=== PATIENT | female | born 1940 | race Caucasian/White ===

== ENCOUNTER 2019-06-02 00:34 | Emergency (ER) | payer MEDICARE, BC ==
--- NOTE | 2019-06-02 01:51 | EDM.PDOC ---
ED HPI GENERAL MEDICAL PROBLEM - General Chief Complaint: Genitourinary Problem Stated Complaint: BLADDER CANCER SURGERY TODAY IN PAIN Time Seen by Provider: 06/02/19 00:35 Source of Information: Reports: Patient, Family History Limitations: Reports: No Limitations - History of Present Illness INITIAL COMMENTS - FREE TEXT/NARRATIVE: TRIAGE NOTE -- Pt has hx of bladder cancer, had surgery this am in [place]. Since then, she has not been able to urinate at all. Has burning feeling when attempting to urinate. Complaining of pain to bladder and lower abdomen. Type 1 diabetes and states BG has been elevated, has an insulin pump. [ End ] As above. Patient had a BCG treatment earlier today. This was in [place]. She returned to [place] where she lives and she and family noted bladder distention and she came to the ER. Patient has a history of noninvasive bladder cancer and other significant issues include diabetes, renal insufficiency, history of occluded or obstructed left ureter, and hypertension. No fever or other symptom of acute medical illness has been noted prior to arrival. There has been no treatment or other attempt to relieve symptoms prior to coming to the emergency department. Patient was brought as soon as the problem was detected by family and patient. Lower Abdomen Pain Score (Numeric/FACES): 8 - Related Data Allergies Allergy/AdvReac Type Severity Reaction Status Date / Time Sulfa (Sulfonamide Allergy Rash Verified 06/02/19 00:57 Antibiotics) Home Meds: Home Meds Aspirin 81 mg PO DAILY 01/15/19 [History] Calcium Carbonate [Calcium] 600 mg PO DAILY 01/15/19 [History] Cholecalciferol (Vitamin D3) [Vitamin D3] 2,000 mg PO DAILY 01/15/19 [History] Levothyroxine 112 mcg PO DAILY 01/15/19 [History] Metoprolol Tartrate 25 mg PO BID 01/15/19 [History] Multivitamin [Multivitamins] 1 tab PO DAILY 01/15/19 [History] Simvastatin [Zocor] 40 mg PO DAILY 01/15/19 [History] Vitamin B Complex 1 tab PO DAILY 01/15/19 [History] amLODIPine Besylate/Benazepril [Amlodipine-Benazepril 10-20 MG] 1 tab PO DAILY 01/15/19 [History] hydroCHLOROthiazide [Hydrochlorothiazide] 12.5 mg PO DAILY 01/15/19 [History] Ciprofloxacin HCl [Cipro] 250 mg PO BID #14 tablet 04/18/19 [Rx] Novolog Insulin Pump. 04/18/19 [History] Ciprofloxacin [Ciprofloxacin HCl] 500 mg PO Q18H 5 Days #5 tab 06/02/19 [Rx] Past Medical History HEENT History: Reports: Impaired Vision Cardiovascular History: Reports: Hypertension Genitourinary History: Reports: UTI, Recurrent Other Genitourinary History: bladder cancer Endocrine/Metabolic History: Reports: Diabetes, Type I - Past Surgical History Female Surgical History: Reports: Cystoscopy, Other (See Below) Other Female Surgeries/Procedures: surgery for bladder cancer, biopsy Social & Family History - Family History Family Medical History: Noncontributory - Tobacco Use Smoking Status *Q: Never Smoker Second Hand Smoke Exposure: No - Caffeine Use Caffeine Use: Reports: None - Recreational Drug Use Recreational Drug Use: No ED ROS GENERAL - Review of Systems Review Of Systems: Comprehensive ROS is negative, except as noted in HPI. ED EXAM, RENAL/ - Physical Exam Exam: See Below Exam Limited By: No Limitations General Appearance: Alert, No Apparent Distress, Other (wan) Eye Exam: Bilateral Eye: EOMI Ears: Normal External Exam Nose: Normal Inspection Throat/Mouth: Normal Inspection Head: Atraumatic Neck: Normal Inspection, Supple Respiratory/Chest: No Respiratory Distress, Normal Breath Sounds Cardiovascular: Regular Rate, Rhythm GI/Abdominal: Soft, Non-Tender, Other (Fullness and dullness in the lower abdomen consistent with bladder distention) Back Exam: Normal Inspection Extremities: Normal Inspection Neurological: Alert, Oriented Psychiatric: Normal Affect, Normal Mood Skin Exam: Warm, Dry Course - Vital Signs Last Recorded V/S: Last Vital Signs Temp 37.5 C 06/02/19 00:52 Pulse 104 H 06/02/19 00:52 Resp 16 06/02/19 00:52 BP 181/63 H 06/02/19 00:52 Pulse Ox 97 06/02/19 00:52 - Orders/Labs/Meds Orders: Active Orders 24 hr Category Date Time Status Urinary Catheter Assessment [RC] ASDIRECTED Care 06/02/19 01:19 Active Urinary Catheter Insertion [Insert Urinary Catheter] [ Care 06/02/19 01:20 Ordered OM.PC] Q24H CULTURE URINE [RM] Stat Lab 06/02/19 01:15 Received Labs: Laboratory Tests 06/02/19 06/02/19 06/02/19 Range/Units 01:15 01:28 01:28 WBC 17.00 H (3.98-10.04) K/mm3 RBC 3.71 L (3.98-5.22) M/mm3 Hgb 10.5 L (11.2-15.7) gm/dl Hct 30.5 L (34.1-44.9) % MCV 82.2 (79.4-94.8) fl MCH 28.3 (25.6-32.2) pg MCHC 34.4 (32.2-35.5) g/dl RDW Std Deviation 38.1 (36.4-46.3) fL Plt Count 294 (182-369) K/mm3 MPV 9.1 L (9.4-12.3) fl Neut % (Auto) 90.5 H (34.0-71.1) % Lymph % (Auto) 3.2 L (19.3-51.7) % [place] % (Auto) 6.0 (4.7-12.5) % Eos % (Auto) 0 L (0.7-5.8) Baso % (Auto) 0.1 (0.1-1.2) % Neut # (Auto) 15.39 H (1.56-6.13) K/mm3 Lymph # (Auto) 0.54 L (1.18-3.74) K/mm3 [place] # (Auto) 1.02 H (0.24-0.36) K/mm3 Eos # (Auto) 0.00 L (0.04-0.36) K/mm3 Baso # (Auto) 0.01 (0.01-0.08) K/mm3 Manual Slide Review Abnormal smear Sodium 119 L (136-145) mEq/L Potassium 4.8 (3.5-5.1) mEq/L Chloride 85 L (98-107) mEq/L Carbon Dioxide 18 L (21-32) mEq/L Anion Gap 20.8 H (5-15) BUN 46 H (7-18) mg/dL Creatinine 2.1 H (0.55-1.02) mg/dL Est Cr Clr Drug Dosing 20.19 mL/min Estimated GFR (MDRD) 23 (>60) mL/min BUN/Creatinine Ratio 21.9 H (14-18) Glucose 276 H (83-115) mg/dL POC Glucose (83-110) mg/dL Calcium 8.2 L (8.5-10.1) mg/dL Total Bilirubin 0.5 (0.2-1.0) mg/dL AST 21 (15-37) U/L ALT 21 (14-59) U/L Alkaline Phosphatase 70 (46-116) U/L Total Protein 7.0 (6.4-8.2) g/dl Albumin 3.3 L (3.4-5.0) g/dl Globulin 3.7 gm/dL Albumin/Globulin Ratio 0.9 L (1-2) Urine Color Red H (Yellow) Urine Appearance Turbid H (Clear) Urine pH 6.0 (5.0-8.0) Ur Specific [place] 1.025 (1.005-1.030) Urine Protein 3+ H (Negative) Urine Glucose (UA) Trace H (Negative) Urine Ketones Negative (Negative) Urine Occult Blood 3+ H (Negative) Urine Nitrite Negative (Negative) Urine Bilirubin Negative (Negative) Urine Urobilinogen 0.2 (0.2-1.0) Ur Leukocyte Esterase 1+ H (Negative) Urine RBC Too numerous to cnt H (0-5) /hpf Urine WBC 5-10 H (0-5) /hpf Urine WBC Clumps Rare (NOT SEEN) /hpf Ur Epithelial Cells Not seen (0-5) /hpf Urine Bacteria Few (FEW) /hpf Urine Mucus Rare (FEW) /hpf 06/02/19 Range/Units 01:43 WBC (3.98-10.04) K/mm3 RBC (3.98-5.22) M/mm3 Hgb (11.2-15.7) gm/dl Hct (34.1-44.9) % MCV (79.4-94.8) fl MCH (25.6-32.2) pg MCHC (32.2-35.5) g/dl RDW Std Deviation (36.4-46.3) fL Plt Count (182-369) K/mm3 MPV (9.4-12.3) fl Neut % (Auto) (34.0-71.1) % Lymph % (Auto) (19.3-51.7) % [place] % (Auto) (4.7-12.5) % Eos % (Auto) (0.7-5.8) Baso % (Auto) (0.1-1.2) % Neut # (Auto) (1.56-6.13) K/mm3 Lymph # (Auto) (1.18-3.74) K/mm3 [place] # (Auto) (0.24-0.36) K/mm3 Eos # (Auto) (0.04-0.36) K/mm3 Baso # (Auto) (0.01-0.08) K/mm3 Manual Slide Review Sodium (136-145) mEq/L Potassium (3.5-5.1) mEq/L Chloride (98-107) mEq/L Carbon Dioxide (21-32) mEq/L Anion Gap (5-15) BUN (7-18) mg/dL Creatinine (0.55-1.02) mg/dL Est Cr Clr Drug Dosing mL/min Estimated GFR (MDRD) (>60) mL/min BUN/Creatinine Ratio (14-18) Glucose (83-115) mg/dL POC Glucose 281 H (83-110) mg/dL Calcium (8.5-10.1) mg/dL Total Bilirubin (0.2-1.0) mg/dL AST (15-37) U/L ALT (14-59) U/L Alkaline Phosphatase (46-116) U/L Total Protein (6.4-8.2) g/dl Albumin (3.4-5.0) g/dl Globulin gm/dL Albumin/Globulin Ratio (1-2) Urine Color (Yellow) Urine Appearance (Clear) Urine pH (5.0-8.0) Ur Specific [place] (1.005-1.030) Urine Protein (Negative) Urine Glucose (UA) (Negative) Urine Ketones (Negative) Urine Occult Blood (Negative) Urine Nitrite (Negative) Urine Bilirubin (Negative) Urine Urobilinogen (0.2-1.0) Ur Leukocyte Esterase (Negative) Urine RBC (0-5) /hpf Urine WBC (0-5) /hpf Urine WBC Clumps (NOT SEEN) /hpf Ur Epithelial Cells (0-5) /hpf Urine Bacteria (FEW) /hpf Urine Mucus (FEW) /hpf - Re-Assessments/Exams Free Text/Narrative Re-Assessment/Exam: 06/02/19 02:51 A Malone catheter was placed without difficulty and almost a liter of blood- tinged urine was released. Discussed with the patient's urologist who had done the procedure earlier Dr. Raphael Jang. We discussed the 17,000 white count which is most likely related to the procedure. The urine is positive for blood as expected without any evidence of infection. Renal function apparently is about baseline for the patient. Urology recommends putting the patient on prophylactic Cipro and we have prescribed this in dosage appropriate for her renal insufficiency. He also asked that we flush the catheter to clear out blood so that it would be less likely to clot and cause another outlet obstruction. This was done uneventfully. Departure - Departure Time of Disposition: 02:45 Disposition: Home, Self-Care 01 Condition: Good Clinical Impression: Bladder outlet obstruction, Status post urological surgery - Discharge Information Prescriptions: Ciprofloxacin [Ciprofloxacin HCl] 500 mg PO Q18H 5 Days #5 tab Referrals: Raphael Montes MD [Primary Care Provider] - Forms: ED Department Discharge Additional Instructions: You were seen tonight for a urinary outlet obstruction probably as result of blood clots from your earlier procedure. A Malone catheter has been placed. Discussed with your urologist. He recommends flushing the catheter to minimize the formation of clots to cause another urinary obstruction. He also recommended a 5-day course of Cipro and antibiotic. This is been ordered. Return to ER right away for any further evidence of obstruction, fever, nausea vomiting, any symptom of acute illness whatsoever. Get in touch with your urologist this morning for any further instructions Sepsis Event Note - Evaluation Sepsis Screening Result: No Definite Risk - Focused Exam Vital Signs: Vital Signs Temp Pulse Resp BP Pulse Ox 06/02/19 00:52 37.5 C 104 H 16 181/63 H 97 Date Exam was Performed: 06/02/19 Time Exam was Performed: 02:45 - My Orders Last 24 Hours: My Active Orders 06/02/19 01:15 CULTURE URINE [RM] Stat - Assessment/Plan Last 24 Hours: My Active Orders 06/02/19 01:15 CULTURE URINE [RM] Stat
== END 2019-06-02 03:20 | disposition home or self-care (01) ==
LOC: JD.ED 00:34
DX: N32.0 Bladder-neck obstruction (principal); I10 Essential (primary) hypertension; E10.9 Type 1 diabetes mellitus without complications; Z79.82 Long term (current) use of aspirin; Z88.2 Allergy status to sulfonamides; Z79.899 Other long term (current) drug therapy
CPT/HCPCS: 36415; 51702; 80053; 81001; 82962; 85025; 87086; 99284

== ENCOUNTER 2019-06-02 10:06 | Inpatient (IN) | payer MEDICARE, BC ==
--- NOTE | 2019-06-02 10:26 | EDM.PDOC ---
ED HPI GENERAL MEDICAL PROBLEM - General Chief Complaint: Genitourinary Problem Stated Complaint: VOMITING/CATHETER ISSUES Time Seen by Provider: 06/02/19 10:26 Source of Information: Reports: Patient History Limitations: Reports: No Limitations - History of Present Illness INITIAL COMMENTS - FREE TEXT/NARRATIVE: [id number] female returns to the ED after being seen earlier this morning at [address] Martinez. The history suggests a lady with known bladder cancer with recurrences and requiring cauterization and fulguration by urology services in [place] yesterday. She is being set up for intravesical BCG treatments. First diagnosed with this disorder greater than 6 months ago in [facility] and was advised follow-up for BCG treatments which whatever reason never got done. On follow-up in 6 months later she still had recurrence of cancer and fulguration and cauterization was once again done by urology services in [place]. She recently was seen in [place] and fulguration cauterization was repeated. Patient came into the ED early this morning because of inability to void. It was felt that she likely had clots in her bladder causing occlusion. A Malone catheter was therefore placed. The family has noted occasional blood clots in the drainage tube and the collection bag. Apparently the patient did receive a dose of antibiotic preoperatively. When she presented to the ED this morning she did have a temperature of 37.5. Pulse is 104 at the bedside and BP was elevated slightly at 181/63 with respect rate is 16 and sats 97%. Her white count was elevated at 17,000 with 19.5% neutrophils suggestive of an infective process. Hemoglobin was 10.5 with a hematocrit of 30.5 and platelet count of 294,000. She is an insulin-dependent diabetic controlled with an insulin pump. Her sugar was elevated at 276 this morning chemistry revealed a sodium of 119 this morning. Potassium of 4.8 with a chloride of 85 and a bicarbonate of 18. Anion gap was elevated at 20.8. BUN is 46 with a creatinine of 2.1 and a GFR of 23 confirming stage IV chronic kidney disease. Urinalysis done this morning was red turbid with 3+ protein negative ketones trace of glucose 3+ occult blood on the dip and 1+ leukocyte esterase. 2 numerous to count red cells and 5-10 white blood cells appreciated. He did consult with urology services and recommended placing the patient on prophylactic Cipro and she was given 500 mg once daily. She has not yet been able to fill this prescription or take it. Reasoner return to the ED this morning is recurrent nausea and vomiting since discharge from the hospital. Even water came back up just shortly before coming into the ED. is bilious. On examination patient does feel warm to palpation. She does report her temperature is 37.0 but she feels warmer than this. Onset: Today Onset Date: 06/02/19 (Presented to the ED at 00 35 hours this morning in urinary retention. Seem to occur from a blood obstruction from blood clots after having fulguration and cauterization of bladder tumor yesterday in [place] by neurology services.) Onset Time: 00:35 (200 and vomiting this morning and is vomited 4 times in total unable to keep down any of her medications.) Duration: Hour(s): Location: Reports: Abdomen (recurrent nausea and vomiting.) Quality: Reports: Other (Generally does not feel well.) Severity: Moderate (Perhaps very mild chills.) Improves with: Reports: None Worsens with: Reports: Other (Able to eat or drink. He comes right back up) Context: Reports: Other (Recent fulguration and cauterization of bladder tumor in [place] yesterday. It is believed that she did receive prophylactic IV antibiotic during the surgery or before surgery. Zets with intractable nausea and vomiting this morning.). Denies: Activity, Exercise, Lifting, Sick Contact , Trauma Associated Symptoms: Reports: Cough, Fever/Chills, Loss of Appetite (States she does have a mild cough), Malaise, Nausea/Vomiting, Weakness. Denies: Confusion , Chest Pain, cough w sputum, Diaphoresis, Headaches, Rash, Seizure (Intractable ), Shortness of Breath, Syncope Treatments [employer]: Reports: Other (see below) (Nothing will stay down) - Related Data Allergies Allergy/AdvReac Type Severity Reaction Status Date / Time Sulfa (Sulfonamide Allergy Rash Verified 06/02/19 10:37 Antibiotics) Home Meds: Home Meds Aspirin 81 mg PO DAILY 01/15/19 [History] Calcium Carbonate [Calcium] 600 mg PO DAILY 01/15/19 [History] Cholecalciferol (Vitamin D3) [Vitamin D3] 2,000 mg PO DAILY 01/15/19 [History] Levothyroxine 112 mcg PO DAILY 01/15/19 [History] Metoprolol Tartrate 25 mg PO BID 01/15/19 [History] Multivitamin [Multivitamins] 1 tab PO DAILY 01/15/19 [History] Simvastatin [Zocor] 40 mg PO DAILY 01/15/19 [History] Vitamin B Complex 1 tab PO DAILY 01/15/19 [History] amLODIPine Besylate/Benazepril [Amlodipine-Benazepril 10-20 MG] 1 tab PO DAILY 01/15/19 [History] hydroCHLOROthiazide [Hydrochlorothiazide] 25 mg PO DAILY 01/15/19 [History] Novolog Insulin Pump. 04/18/19 [History] Ciprofloxacin [Ciprofloxacin HCl] 500 mg PO DAILY 06/02/19 [History] Ferrous Sulfate [Iron] 325 mg PO DAILY 06/02/19 [History] Past Medical History HEENT History: Reports: Impaired Vision Cardiovascular History: Reports: Hypertension Genitourinary History: Reports: Chronic Renal Insuffiency (Stage IV.), Diabetic Nephropathy, UTI, Recurrent Other Genitourinary History: bladder cancer--initial diagnosis was made greater than 8 months ago in [facility]. Patient was supposed of BCG treatments after this but never did for whatever reason. She was just seen again in [place] and repeat fulguration and cauterization of bladder tumor was repeated. She came back to [place] and treatment. She was seen by urology services in [place] who underwent a repeat cystoscopy yesterday with fulguration cauterization of bladder tumor and scrapings. She is to start intravesical BCG treatments in the near future Endocrine/Metabolic History: Reports: Diabetes, Type II (Controlled with insulin pump) Other Endocrine/Metabolic History: Blood sugars have been running high the last 2 days - Past Surgical History Female Surgical History: Reports: Cystoscopy, Other (See Below) Other Female Surgeries/Procedures: surgery for bladder cancer, biopsy Social & Family History - Family History Family Medical History: Noncontributory - Caffeine Use Caffeine Use: Reports: None - Living Situation & Occupation Living situation: Reports: , Alone Occupation: Retired ED ROS GENERAL - Review of Systems Review Of Systems: See Below Constitutional: Reports: Fever, Chills, Malaise, Weakness, Fatigue, Decreased Appetite HEENT: Reports: Glasses Respiratory: Reports: No Symptoms Cardiovascular: Reports: Blood Pressure Problem, Dyspnea on Exertion (Mild in her lower extremities at times), Edema, Lightheadedness. Denies: Chest Pain, Claudication, Orthopnea Endocrine: Reports: Fatigue GI/Abdominal: Reports: Nausea, Vomiting (Constant nausea and vomiting for the last 8-10 hours.) : Reports: Frequency ( They will stay down.), Other (Went into urinary retention after having fulguration and cauterization of bladder tumor yesterday in [place]. Presented to the ED at 00 35 hours this morning in urinary retention requiring Malone catheter placement. The catheter drainage system is showing evidence of bright red blood and a few clots. It is suspect that clotting occluded her urethra precipitating urinary retention. She is known to have bladder cancer for the last 8-10 months to receive intravesical BCG treatments which were recommended initially at the time of diagnosis) Musculoskeletal: Reports: Back Pain, Joint Pain (Knees hips shoulders and neck at times) Skin: Reports: No Symptoms Neurological: Reports: No Symptoms Psychiatric: Reports: No Symptoms Immunologic: Reports: No Symptoms ED EXAM, RENAL/ - Physical Exam Exam: See Below Exam Limited By: No Limitations General Appearance: Alert, WD/WN, Mild Distress, Other (Vital signs were temperature 37.0 but she feels warmer than this on palpation. Pulse is 92 and sinus the bedside was pressure to 13 with O2 sats of 100% on room air. BP minimally elevated 159/53.) Eye Exam: Right Eye: Normal Inspection (No scleral icterus.) Throat/Mouth: Normal Inspection, Normal Oropharynx, Other (Tongue is dry and coated) Head: Atraumatic, Normocephalic Neck: Normal Inspection, Supple, Non-Tender, Full Range of Motion, Other (No JVD.). No: Carotid Bruit, Lymphadenopathy (L), Lymphadenopathy (R) Respiratory/Chest: No Respiratory Distress, Lungs Clear, Normal Breath Sounds, No Accessory Muscle Use Cardiovascular: Normal Peripheral Pulses, Regular Rate, Rhythm, No Edema, No Gallop, No Murmur, No Rub GI/Abdominal: Normal Bowel Sounds, Soft, Non-Tender, No Organomegaly, No Mass, Pelvis Stable, Rebound (Female) Exam: Other (Malone catheter in place in the urethra. No she's been leaking around the urethral site of the catheter. The catheter drainage bag and catheter tubing contained bright red blood with a few clots.) Back Exam: Normal Inspection, Full Range of Motion, CVA Tenderness (L). No: CVA Tenderness (R) Extremities: Normal Inspection (Mild), Normal Range of Motion, Non-Tender, Pedal Edema Neurological: Alert, Oriented (Mild.), CN II-XII Intact, Normal Cognition Psychiatric: Normal Affect, Other Skin Exam: Warm, Dry, Intact, Normal Color, No Rash EKG INTERPRETATION EKG Date: 06/02/19 Time: 10:43 Rhythm: NSR Rate (Beats/Min): 86 [place]: Normal P-Wave: Present (First-degree AV block) QRS: Other (Severe left atrial hypertrophy early R-wave transition consider right ventricular hypertrophy versus septal hypertrophy pattern.) ST-T: Normal (Minimally prolonged) QT: Prolonged EKG Interpretation Comments: Abnormal ECG Chemistry reveals a sodium of 114. I believe was 119 when checked earlier this morning. Potassium is 4.2 with a chloride low at 82. Bicarbonate is 20 with an anion gap of 16.2. BUN is 44 the creatinine of 1.9. GFR is down to 20 6H stage IV chronic kidney disease. Glucose is 231. Calcium is 8.3 magnesium is 1.6. Slightly low liver function is normal troponin I is less than 0.017. C-reactive protein is elevated at 6.8. BNP is 2220. Total protein is 6.8 with an albumin fraction low at 3.1. Course - Vital Signs Last Recorded V/S: Last Vital Signs Temp 37.9 C 06/02/19 12:06 Pulse 85 06/02/19 12:06 Resp 13 06/02/19 10:26 BP 159/61 H 06/02/19 12:06 Pulse Ox 99 06/02/19 12:06 - Orders/Labs/Meds Orders: Active Orders 24 hr Category Date Time Status EKG Documentation Completion [RC] STAT Care 06/02/19 10:39 Active Chest 1V Frontal [CR] Stat Exams 06/02/19 10:39 Taken CULTURE BLOOD [BC] Stat Lab 06/02/19 11:48 Received CULTURE BLOOD [BC] Stat Lab 06/02/19 12:04 Received CULTURE URINE [RM] Stat Lab 06/02/19 01:15 Received OSMOLALITY,SERUM [CHEM] Stat Lab 06/02/19 12:10 Ordered SODIUM,URINE RANDOM [URCHEM] Stat Lab 06/02/19 12:23 Ordered Magnesium Sulfate/Water [Magnesium Sulfate in Water Med 06/02/19 12:04 Active Premix] 2 gm Premix Bag 1 bag IV ONETIME Sodium Chloride 0.9% [Normal Saline] 1,000 ml Med 06/02/19 10:45 Active IV ASDIRECTED Blood Culture x2 Reflex Set [OM.PC] Stat Oth 06/02/19 10:39 Ordered Medication Orders Sodium Chloride (Normal Saline) 1,000 mls @ 250 mls/hr IV ASDIRECTED NICOL Last Admin: 06/02/19 10:58 Dose: 250 mls/hr Magnesium Sulfate 2 gm/ Premix 50 mls @ 25 mls/hr IV ONETIME ONE Stop: 06/02/19 14:03 Labs: Laboratory Tests 06/02/19 06/02/19 06/02/19 Range/Units 10:30 10:30 10:30 WBC 12.76 H (3.98-10.04) K/mm3 RBC 3.52 L (3.98-5.22) M/mm3 Hgb 10.0 L (11.2-15.7) gm/dl Hct 28.9 L (34.1-44.9) % MCV 82.1 (79.4-94.8) fl MCH 28.4 (25.6-32.2) pg MCHC 34.6 (32.2-35.5) g/dl RDW Std Deviation 37.4 (36.4-46.3) fL Plt Count 276 (182-369) K/mm3 MPV 9.2 L (9.4-12.3) fl Neutrophils % (Manual) 81 H (40-60) % Band Neutrophils % 0 (0-10) % Lymphocytes % (Manual) 9 L (20-40) % Atypical Lymphs % 0 % Monocytes % (Manual) 9 (2-10) % Eosinophils % (Manual) 1 (0.7-5.8) % Basophils % (Manual) 0 L (0.1-1.2) Platelet Estimate Adequate RBC Morph Comment Normal ESR (0-20) mm/hr PT 11.4 (9.7-12.0) SECONDS INR 1.05 APTT 28 (22-31) SECONDS Sodium 114 L* (136-145) mEq/L Potassium 4.2 (3.5-5.1) mEq/L Chloride 82 L (98-107) mEq/L Carbon Dioxide 20 L (21-32) mEq/L Anion Gap 16.2 H (5-15) BUN 44 H (7-18) mg/dL Creatinine 1.9 H (0.55-1.02) mg/dL Est Cr Clr Drug Dosing 20.51 mL/min Estimated GFR (MDRD) 26 (>60) mL/min BUN/Creatinine Ratio 23.2 H (14-18) Glucose 231 H (83-115) mg/dL Lactic Acid (0.4-2.0) mmol/L Calcium 8.3 L (8.5-10.1) mg/dL Magnesium 1.6 L (1.8-2.4) mg/dl Total Bilirubin 0.6 (0.2-1.0) mg/dL AST 23 (15-37) U/L ALT 21 (14-59) U/L Alkaline Phosphatase 66 (46-116) U/L Troponin I < 0.017 (0.00-0.056) ng/mL C-Reactive Protein 6.8 H* (<1.0) mg/dL NT-Pro-B Natriuret Pep (0-450) pg/mL Total Protein 6.8 (6.4-8.2) g/dl Albumin 3.1 L (3.4-5.0) g/dl Globulin 3.7 gm/dL Albumin/Globulin Ratio 0.8 L (1-2) Ketones (0.0-0.3) mM 06/02/19 06/02/19 06/02/19 Range/Units 10:30 10:30 10:30 WBC (3.98-10.04) K/mm3 RBC (3.98-5.22) M/mm3 Hgb (11.2-15.7) gm/dl Hct (34.1-44.9) % MCV (79.4-94.8) fl MCH (25.6-32.2) pg MCHC (32.2-35.5) g/dl RDW Std Deviation (36.4-46.3) fL Plt Count (182-369) K/mm3 MPV (9.4-12.3) fl Neutrophils % (Manual) (40-60) % Band Neutrophils % (0-10) % Lymphocytes % (Manual) (20-40) % Atypical Lymphs % % Monocytes % (Manual) (2-10) % Eosinophils % (Manual) (0.7-5.8) % Basophils % (Manual) (0.1-1.2) Platelet Estimate RBC Morph Comment ESR 52 H (0-20) mm/hr PT (9.7-12.0) SECONDS INR APTT (22-31) SECONDS Sodium (136-145) mEq/L Potassium (3.5-5.1) mEq/L Chloride (98-107) mEq/L Carbon Dioxide (21-32) mEq/L Anion Gap (5-15) BUN (7-18) mg/dL Creatinine (0.55-1.02) mg/dL Est Cr Clr Drug Dosing mL/min Estimated GFR (MDRD) (>60) mL/min BUN/Creatinine Ratio (14-18) Glucose (83-115) mg/dL Lactic Acid (0.4-2.0) mmol/L Calcium (8.5-10.1) mg/dL Magnesium (1.8-2.4) mg/dl Total Bilirubin (0.2-1.0) mg/dL AST (15-37) U/L ALT (14-59) U/L Alkaline Phosphatase (46-116) U/L Troponin I (0.00-0.056) ng/mL C-Reactive Protein (<1.0) mg/dL NT-Pro-B Natriuret Pep 2220 H (0-450) pg/mL Total Protein (6.4-8.2) g/dl Albumin (3.4-5.0) g/dl Globulin gm/dL Albumin/Globulin Ratio (1-2) Ketones 0.20 (0.0-0.3) mM 06/02/19 Range/Units 11:48 WBC (3.98-10.04) K/mm3 RBC (3.98-5.22) M/mm3 Hgb (11.2-15.7) gm/dl Hct (34.1-44.9) % MCV (79.4-94.8) fl MCH (25.6-32.2) pg MCHC (32.2-35.5) g/dl RDW Std Deviation (36.4-46.3) fL Plt Count (182-369) K/mm3 MPV (9.4-12.3) fl Neutrophils % (Manual) (40-60) % Band Neutrophils % (0-10) % Lymphocytes % (Manual) (20-40) % Atypical Lymphs % % Monocytes % (Manual) (2-10) % Eosinophils % (Manual) (0.7-5.8) % Basophils % (Manual) (0.1-1.2) Platelet Estimate RBC Morph Comment ESR (0-20) mm/hr PT (9.7-12.0) SECONDS INR APTT (22-31) SECONDS Sodium (136-145) mEq/L Potassium (3.5-5.1) mEq/L Chloride (98-107) mEq/L Carbon Dioxide (21-32) mEq/L Anion Gap (5-15) BUN (7-18) mg/dL Creatinine (0.55-1.02) mg/dL Est Cr Clr Drug Dosing mL/min Estimated GFR (MDRD) (>60) mL/min BUN/Creatinine Ratio (14-18) Glucose (83-115) mg/dL Lactic Acid 0.7 (0.4-2.0) mmol/L Calcium (8.5-10.1) mg/dL Magnesium (1.8-2.4) mg/dl Total Bilirubin (0.2-1.0) mg/dL AST (15-37) U/L ALT (14-59) U/L Alkaline Phosphatase (46-116) U/L Troponin I (0.00-0.056) ng/mL C-Reactive Protein (<1.0) mg/dL NT-Pro-B Natriuret Pep (0-450) pg/mL Total Protein (6.4-8.2) g/dl Albumin (3.4-5.0) g/dl Globulin gm/dL Albumin/Globulin Ratio (1-2) Ketones (0.0-0.3) mM Meds: Medications Generic Name Dose Route Start Last Admin Trade Name Freq PRN Reason Stop Dose Admin Sodium Chloride 1,000 mls @ 250 mls/hr 06/02/19 10:45 06/02/19 10:58 Normal Saline IV 250 mls/hr ASDIRECTED NICOL Administration Magnesium Sulfate 2 gm/ Premix 50 mls @ 25 mls/hr 06/02/19 12:04 IV 06/02/19 14:03 ONETIME ONE Discontinued Medications Generic Name Dose Route Start Last Admin Trade Name Erick PRN Reason Stop Dose Admin Acetaminophen 650 mg 06/02/19 11:00 06/02/19 10:58 Tylenol PO 06/02/19 11:01 650 mg ONETIME ONE Administration Ceftriaxone Sodium 1 gm/ 100 mls @ 200 mls/hr 06/02/19 11:19 06/02/19 11:52 Sodium Chloride IV 06/02/19 11:48 200 mls/hr ONETIME ONE Administration Ondansetron HCl 4 mg 06/02/19 10:38 06/02/19 10:58 Zofran IVPUSH 06/02/19 10:39 4 mg ONETIME ONE Administration - Radiology Interpretation Free Text/Narrative:: 78-year-old female presents to the ED for the second time in the same day. She was here earlier this morning at 00 35 hours as she presented with acute urinary retention after having fulguration and cauterization of bladder tumor in [place] by urology services yesterday. Was felt that her urethra was likely occluded from clot. A Malone catheter was placed and is been draining bloody urine since. He presents to the ED now because of recurrent nausea and vomiting since going home. She's vomited 4. A weak and exhausted. She is supposed to be taking Cipro 500 mg once daily but they have yet to fill the prescription for this medication. He has significant renal insufficiency i.e. stage IV due to diabetic nephropathy. Her sugars are controlled with an insulin pump. Labs done early this morning revealed a very low sodium at 119 elevated white count at 17, 000 with a left shift with a temperature 37.5. He returns today due to intractable nausea and vomiting since going home. She feels febrile to me but the temperature recorded is 37.0 by nursing staff. Plan she'll have a septic workup carried out. - Re-Assessments/Exams Free Text/Narrative Re-Assessment/Exam: 06/02/19 11:08 White count is 12.76 with 81% neutrophils and no band cells reported. Hemoglobin is low at 10.0 with hematocrit of 28.9. Platelet count 276, 000. PT is 11.4 with an INR 1.05 i.e. minimally elevated. PTT is normal at 28. Chest x-ray done portably is reveals a normal cardiac silhouette. It suggests a diffuse vascular congestion pattern to the upper lobes. No pneumonia 06/02/19 11:47Labs reveal a white count of 12.76 with 81% neutrophils and no band cells reported. Hemoglobin is dropped little at 10.0 and was 10.5 earlier this morning. Hematocrit is 28.9 platelet count 276,000. PT is 11.4 with an INR slightly elevated at 1.05. PTT is 28. Sodium is very low at 114 with potassium of 4.2. Chloride is 82 with a bicarbonate of 20. Anion gap is 16.2. BUN is 44 with creatinine of 1.9. Estimated GFR is only 26 i.e. stage IV chronic kidney disease. BUN/creatinine ratio is elevated at 23.2. Glucose is 231 with a calcium of 8.3. Magnesium slightly low at 1.6. Vision is normal. Troponin I is less than 0.017. C-reactive protein is elevated at 6.8. BNP is elevated at 2220. Total protein is 6.8 with an albumin fraction of 3.1. Patient will be given Rocephin 1 g IV for suspect urinary tract infection. Urine culture will be ordered on today's urinalysis as one was not done earlier this morning. 06/02/19 12:02 will be discussed with on-call hospitalist Dr. Harrell with a view to admission to the hospital to correct her hyponatremia slowly as she is also mild heart failure. She has stage IV renal insufficiency due to diabetic nephropathy. Appears to have urinary tract infection with a low-grade fever. Ultracet been collected. Given Rocephin 1 g IV in the ED. Of note she is due to have her diabetic tubing and dermal insertion site pad replaced on July 05. This last 10 days. Insulin was replaced in her pump yesterday. Her lactic acid level is pending. Serum ketones came back at 0.20. Will hang magnesium 2 g IV to correct her or mild hypomagnesemia at 1.6. 06/02/19 12:43 16 back at 0.7.tic acid returned at 0.7. Urine osmolality is pending. Will give the patient Lasix 40 mg IV. 06/02/19 12:[address] Harrell [employer] operations specialist hospitalist and he requested the patient be admitted to the intensive care unit. Orders were placed. Departure - Departure Time of Disposition: 12:49 Disposition: Admitted As Inpatient 67 Condition: Fair Clinical Impression: Acute urinary retention, Gross hematuria, Chronic renal insufficiency, stage IV (severe), CHF (NYHA class III, ACC/AHA stage C), Hyponatremia with decreased serum osmolality, Hypomagnesemia, Type 1 DM with CKD and hypertension - Discharge Information *PRESCRIPTION DRUG MONITORING PROGRAM REVIEWED*: Not Applicable *COPY OF PRESCRIPTION DRUG MONITORING REPORT IN PATIENT KRYSTAL: Not Applicable Referrals: Glenys Vail MD [Primary Care Provider] - Forms: ED Department Discharge Sepsis Event Note - Focused Exam Vital Signs: Vital Signs Temp Pulse Resp BP Pulse Ox 06/02/19 12:06 37.9 C 85 159/61 H 99 06/02/19 10:26 37.0 C 92 13 159/53 H 100 Date Exam was Performed: 06/02/19 Time Exam was Performed: 12:43 - My Orders Last 24 Hours: My Active Orders 06/02/19 01:15 CULTURE URINE [RM] Stat 06/02/19 10:39 EKG Documentation Completion [RC] STAT Chest 1V Frontal [CR] Stat Blood Culture x2 Reflex Set [OM.PC] Stat 06/02/19 10:45 Sodium Chloride 0.9% [Normal Saline] 1,000 ml IV ASDIRECTED 06/02/19 11:48 CULTURE BLOOD [BC] Stat 06/02/19 12:04 CULTURE BLOOD [BC] Stat Magnesium Sulfate/Water [Magnesium Sulfate in Water Premix] 2 gm Premix Bag 1 bag IV ONETIME 06/02/19 12:10 OSMOLALITY,SERUM [CHEM] Stat 06/02/19 12:23 SODIUM,URINE RANDOM [URCHEM] Stat - Assessment/Plan Last 24 Hours: My Active Orders 06/02/19 01:15 CULTURE URINE [RM] Stat 06/02/19 10:39 EKG Documentation Completion [RC] STAT Chest 1V Frontal [CR] Stat Blood Culture x2 Reflex Set [OM.PC] Stat 06/02/19 10:45 Sodium Chloride 0.9% [Normal Saline] 1,000 ml IV ASDIRECTED 06/02/19 11:48 CULTURE BLOOD [BC] Stat 06/02/19 12:04 CULTURE BLOOD [BC] Stat Magnesium Sulfate/Water [Magnesium Sulfate in Water Premix] 2 gm Premix Bag 1 bag IV ONETIME 06/02/19 12:10 OSMOLALITY,SERUM [CHEM] Stat 06/02/19 12:23 SODIUM,URINE RANDOM [URCHEM] Stat
[2019-06-02] MEDS ORDERED: Ondansetron 4 MG/2 ML SDV IVPUSH ONE (10:38)
[2019-06-02] MEDS ORDERED: Sodium Chloride 0.9% 1,000 ML IV SCH (10:45)
[2019-06-02] MEDS ORDERED: Acetaminophen 325 MG Tab PO ONE (11:00)
[2019-06-02] MEDS ORDERED: cefTRIAXone 1 GM in Sodium Chloride 0.9% 100 ML IV ONE (11:19)
[2019-06-02] MEDS ORDERED: Magnesium Sulfate/Water 2 GM in Premix Bag 1 BAG IV ONE (12:04)
[2019-06-02] MEDS ORDERED: Furosemide 40 MG/4 ML VIAL IVPUSH ONE (12:51)
[2019-06-02] MEDS: Sodium Chloride 0.9% 1,000 ML IV SCH (15:45)
--- NOTE | 2019-06-02 15:59 | PCM.HP.2 ---
H&P History of Present Illness - General Date of Service: 06/02/19 Admit Problem/Dx: Admission Diagnosis/Problem Admission Diagnosis/Problem Nausea and vomiting in adult patient - History of Present Illness Initial Comments - Free Text/Narative: 78-year-old female with history of bladder cancer diagnosed 6 months ago had cystoscopy with cauterization in preparation for BCG treatments yesterday in [place]. Apparently the tumor also has caused some obstruction of the kidneys. She does have stage IV renal insufficiency patient was seen initially early this morning by Dr. Martinez secondary to inability to void. Malone catheter was placed and family noted occasional blood clots in the drainage tube and collection bag. Patient then re-presented to the emergency room this morning with sinus tachycardia with a pulse of 104 and elevated blood pressure at 181/63. Patient family stated that she started vomiting after the procedure in [place] and vomited throughout the night and even in the emergency room this afternoon. She developed a fever of 37.9 Celsius. Family states that she has had some increasing confusion over the last few weeks that does seem to be worse over the last few days. UA done earlier this morning did show 5-10 WBCs and too numerous to count red blood cells. Urology was consulted and they recommended Cipro 500 mg once daily. Also of note her serum sodium this morning was 119 and when she returned to the emergency room it was 114. She is an insulin-dependent diabetic and her corrected sodium was 117. Patient was started on 250 mL of normal saline per hour and 4 hours later her corrected sodium was 119. Serum osmolality was 262, urine osmolality 365, random urine sodium 16, proBNP of 2220. Chest x-ray was consistent with vascular congestion consistent with heart failure. Patient is also on thiazide diuretic. BUN was 44 with a creatinine of 1.9 and estimated GFR of 26. She was given Rocephin 1 g, magnesium 2 g, acetaminophen 650 mg, Zofran 4 mg IV push, furosemide 40 mg IV push, and started on normal saline 250 mL/h and she received 1 L prior to admission. - Related Data Allergies/Adverse Reactions: Allergies Allergy/AdvReac Type Severity Reaction Status Date / Time Sulfa (Sulfonamide Allergy Rash Verified 06/02/19 13:53 Antibiotics) Home Medications: Home Meds Calcium Carbonate [Calcium] 600 mg PO DAILY 01/15/19 [History] Cholecalciferol (Vitamin D3) [Vitamin D3] 2,000 mg PO DAILY 01/15/19 [History] RX: Aspirin 81 mg PO DAILY 01/15/19 [History] RX: Levothyroxine 112 mcg PO DAILY 01/15/19 [History] RX: Metoprolol Tartrate 25 mg PO BID 01/15/19 [History] RX: Multivitamin [Multivitamins] 1 tab PO DAILY 01/15/19 [History] RX: Simvastatin [Zocor] 40 mg PO DAILY 01/15/19 [History] RX: Vitamin B Complex 1 tab PO DAILY 01/15/19 [History] amLODIPine Besylate/Benazepril [Amlodipine-Benazepril 10-20 MG] 1 tab PO DAILY 01/15/19 [History] hydroCHLOROthiazide [Hydrochlorothiazide] 25 mg PO DAILY 01/15/19 [History] Novolog Insulin Pump. 04/18/19 [History] LORazepam [Ativan] 1 mg PO PRN 06/02/19 [History] Linaclotide [Linzess] 145 mcg PO DAILY 06/02/19 [History] Lubiprostone [Amitiza] 24 mg PO BID PRN 06/02/19 [History] RX: Ciprofloxacin [Ciprofloxacin HCl] 500 mg PO DAILY 06/02/19 [History] RX: Ferrous Sulfate [Iron] 325 mg PO DAILY 06/02/19 [History] RX: Phenazopyridine [Urinary Pain Relief] 97.5 mg PO TID 06/02/19 [History] Rosuvastatin [Crestor] 10 mg PO DAILY 06/02/19 [History] Past Medical History HEENT History: Reports: Impaired Vision Other HEENT History: wears glasses Cardiovascular History: Reports: Hypertension Genitourinary History: Reports: Chronic Renal Insuffiency, Diabetic Nephropathy , UTI, Recurrent Other Genitourinary History: bladder cancer--initial diagnosis was made greater than 8 months ago in [facility]. Patient was supposed of BCG treatments after this but never did for whatever reason. She was just seen again in [place] and repeat fulguration and cauterization of bladder tumor was repeated. She came back to [place] and treatment. She was seen by urology services in [place] who underwent a repeat cystoscopy yesterday with fulguration cauterization of bladder tumor and scrapings. 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: [employer] 630G Type of Insulin Used in Pump: novolog Who Manages Your Pump: Family/Caregiver Oncologic (Cancer) History: Reports: Bladder, Breast - Past Surgical History GI Surgical History: Reports: Appendectomy Female Surgical History: Reports: Cystoscopy, Other (See Below) Other Female Surgeries/Procedures: surgery for bladder cancer, biopsy Neurological Surgical History: Reports: Discectomy Other Neurological Surgeries/Procedures: L4 L5 Musculoskeletal Surgical History: Reports: Carpal Tunnel Social & Family History - Family History Family Medical History: Noncontributory - Tobacco Use Smoking Status *Q: Never Smoker - Caffeine Use Caffeine Use: Reports: None - Recreational Drug Use Recreational Drug Use: No - Living Situation & Occupation Living situation: Reports: , Alone Occupation: Retired H&P Review of Systems - Review of Systems: Review Of Systems: Comprehensive ROS is negative, except as noted in HPI. Exam - Exam Exam: See Below - Vital Signs Vital Signs: Last Vital Signs Temp 99.1 F 06/02/19 14:07 Pulse 84 06/02/19 13:49 Resp 19 06/02/19 14:07 BP 129/55 L 06/02/19 14:07 Pulse Ox 95 06/02/19 14:07 Weight: 195 lb 6.4 oz - Exam Quality Assessment: No: Supplemental Oxygen General: Other (Patient's family did most of the talking and she did answer direct questions. Mildly confused.) HEENT: Conjunctiva Clear, Mucosa Moist & [place] Neck: Supple Lungs: Normal Respiratory Effort, Rales Cardiovascular: Regular Rate, Regular Rhythm GI/Abdominal Exam: Normal Bowel Sounds, Soft, Non-Tender, No Organomegaly, No Distention Extremities: Normal Inspection, Pedal Edema (1+ pedal edema up to mid tibia) Peripheral Pulses: 1+: Posterior Tibial (L), Posterior Tibial (R), Dorsalis Pedis (L), Dorsalis Pedis (R) Skin: Warm, Dry, Intact Psychiatric: Alert, Normal Affect, Normal Mood - Patient Data Lab Results Last 24 hrs: Laboratory Results - last 24 hr 06/02/19 06/02/19 06/02/19 Range/Units 10:30 10:30 10:30 WBC 12.76 H (3.98-10.04) K/mm3 RBC 3.52 L (3.98-5.22) M/mm3 Hgb 10.0 L (11.2-15.7) gm/dl Hct 28.9 L (34.1-44.9) % MCV 82.1 (79.4-94.8) fl MCH 28.4 (25.6-32.2) pg MCHC 34.6 (32.2-35.5) g/dl RDW Std Deviation 37.4 (36.4-46.3) fL Plt Count 276 (182-369) K/mm3 MPV 9.2 L (9.4-12.3) fl Neutrophils % (Manual) 81 H (40-60) % Band Neutrophils % 0 (0-10) % Lymphocytes % (Manual) 9 L (20-40) % Atypical Lymphs % 0 % Monocytes % (Manual) 9 (2-10) % Eosinophils % (Manual) 1 (0.7-5.8) % Basophils % (Manual) 0 L (0.1-1.2) Platelet Estimate Adequate RBC Morph Comment Normal ESR (0-20) mm/hr PT 11.4 (9.7-12.0) SECONDS INR 1.05 APTT 28 (22-31) SECONDS Sodium 114 L* (136-145) mEq/L Potassium 4.2 (3.5-5.1) mEq/L Chloride 82 L (98-107) mEq/L Carbon Dioxide 20 L (21-32) mEq/L Anion Gap 16.2 H (5-15) BUN 44 H (7-18) mg/dL Creatinine 1.9 H (0.55-1.02) mg/dL Est Cr Clr Drug Dosing 20.51 mL/min Estimated GFR (MDRD) 26 (>60) mL/min BUN/Creatinine Ratio 23.2 H (14-18) Glucose 231 H (83-115) mg/dL Serum Osmolality (280-300) mosm/kg Lactic Acid (0.4-2.0) mmol/L Calcium 8.3 L (8.5-10.1) mg/dL Magnesium 1.6 L (1.8-2.4) mg/dl Total Bilirubin 0.6 (0.2-1.0) mg/dL AST 23 (15-37) U/L ALT 21 (14-59) U/L Alkaline Phosphatase 66 (46-116) U/L Troponin I < 0.017 (0.00-0.056) ng/mL C-Reactive Protein 6.8 H* (<1.0) mg/dL NT-Pro-B Natriuret Pep (0-450) pg/mL Total Protein 6.8 (6.4-8.2) g/dl Albumin 3.1 L (3.4-5.0) g/dl Globulin 3.7 gm/dL Albumin/Globulin Ratio 0.8 L (1-2) Ur Random Sodium (40-220) mEq/L Ketones (0.0-0.3) mM 06/02/19 06/02/19 06/02/19 Range/Units 10:30 10:30 10:30 WBC (3.98-10.04) K/mm3 RBC (3.98-5.22) M/mm3 Hgb (11.2-15.7) gm/dl Hct (34.1-44.9) % MCV (79.4-94.8) fl MCH (25.6-32.2) pg MCHC (32.2-35.5) g/dl RDW Std Deviation (36.4-46.3) fL Plt Count (182-369) K/mm3 MPV (9.4-12.3) fl Neutrophils % (Manual) (40-60) % Band Neutrophils % (0-10) % Lymphocytes % (Manual) (20-40) % Atypical Lymphs % % Monocytes % (Manual) (2-10) % Eosinophils % (Manual) (0.7-5.8) % Basophils % (Manual) (0.1-1.2) Platelet Estimate RBC Morph Comment ESR 52 H (0-20) mm/hr PT (9.7-12.0) SECONDS INR APTT (22-31) SECONDS Sodium (136-145) mEq/L Potassium (3.5-5.1) mEq/L Chloride (98-107) mEq/L Carbon Dioxide (21-32) mEq/L Anion Gap (5-15) BUN (7-18) mg/dL Creatinine (0.55-1.02) mg/dL Est Cr Clr Drug Dosing mL/min Estimated GFR (MDRD) (>60) mL/min BUN/Creatinine Ratio (14-18) Glucose (83-115) mg/dL Serum Osmolality (280-300) mosm/kg Lactic Acid (0.4-2.0) mmol/L Calcium (8.5-10.1) mg/dL Magnesium (1.8-2.4) mg/dl Total Bilirubin (0.2-1.0) mg/dL AST (15-37) U/L ALT (14-59) U/L Alkaline Phosphatase (46-116) U/L Troponin I (0.00-0.056) ng/mL C-Reactive Protein (<1.0) mg/dL NT-Pro-B Natriuret Pep 2220 H (0-450) pg/mL Total Protein (6.4-8.2) g/dl Albumin (3.4-5.0) g/dl Globulin gm/dL Albumin/Globulin Ratio (1-2) Ur Random Sodium (40-220) mEq/L Ketones 0.20 (0.0-0.3) mM 06/02/19 06/02/19 06/02/19 Range/Units 10:30 11:48 12:51 WBC (3.98-10.04) K/mm3 RBC (3.98-5.22) M/mm3 Hgb (11.2-15.7) gm/dl Hct (34.1-44.9) % MCV (79.4-94.8) fl MCH (25.6-32.2) pg MCHC (32.2-35.5) g/dl RDW Std Deviation (36.4-46.3) fL Plt Count (182-369) K/mm3 MPV (9.4-12.3) fl Neutrophils % (Manual) (40-60) % Band Neutrophils % (0-10) % Lymphocytes % (Manual) (20-40) % Atypical Lymphs % % Monocytes % (Manual) (2-10) % Eosinophils % (Manual) (0.7-5.8) % Basophils % (Manual) (0.1-1.2) Platelet Estimate RBC Morph Comment ESR (0-20) mm/hr PT (9.7-12.0) SECONDS INR APTT (22-31) SECONDS Sodium (136-145) mEq/L Potassium (3.5-5.1) mEq/L Chloride (98-107) mEq/L Carbon Dioxide (21-32) mEq/L Anion Gap (5-15) BUN (7-18) mg/dL Creatinine (0.55-1.02) mg/dL Est Cr Clr Drug Dosing mL/min Estimated GFR (MDRD) (>60) mL/min BUN/Creatinine Ratio (14-18) Glucose (83-115) mg/dL Serum Osmolality 262 L (280-300) mosm/kg Lactic Acid 0.7 (0.4-2.0) mmol/L Calcium (8.5-10.1) mg/dL Magnesium (1.8-2.4) mg/dl Total Bilirubin (0.2-1.0) mg/dL AST (15-37) U/L ALT (14-59) U/L Alkaline Phosphatase (46-116) U/L Troponin I (0.00-0.056) ng/mL C-Reactive Protein (<1.0) mg/dL NT-Pro-B Natriuret Pep (0-450) pg/mL Total Protein (6.4-8.2) g/dl Albumin (3.4-5.0) g/dl Globulin gm/dL Albumin/Globulin Ratio (1-2) Ur Random Sodium 16 L (40-220) mEq/L Ketones (0.0-0.3) mM 06/02/ Range/Units 14:38 WBC (3.98-10.04) K/mm3 RBC (3.98-5.22) M/mm3 Hgb (11.2-15.7) gm/dl Hct (34.1-44.9) % MCV (79.4-94.8) fl MCH (25.6-32.2) pg MCHC (32.2-35.5) g/dl RDW Std Deviation (36.4-46.3) fL Plt Count (182-369) K/mm3 MPV (9.4-12.3) fl Neutrophils % (Manual) (40-60) % Band Neutrophils % (0-10) % Lymphocytes % (Manual) (20-40) % Atypical Lymphs % % Monocytes % (Manual) (2-10) % Eosinophils % (Manual) (0.7-5.8) % Basophils % (Manual) (0.1-1.2) Platelet Estimate RBC Morph Comment ESR (0-20) mm/hr PT (9.7-12.0) SECONDS INR APTT (22-31) SECONDS Sodium 117 L* (136-145) mEq/L Potassium 4.1 (3.5-5.1) mEq/L Chloride 85 L (98-107) mEq/L Carbon Dioxide 22 (21-32) mEq/L Anion Gap 14.1 (5-15) BUN 40 H (7-18) mg/dL Creatinine 1.7 H (0.55-1.02) mg/dL Est Cr Clr Drug Dosing TNP mL/min Estimated GFR (MDRD) 29 (>60) mL/min BUN/Creatinine Ratio 23.5 H (14-18) Glucose 167 H (83-115) mg/dL Serum Osmolality (280-300) mosm/kg Lactic Acid (0.4-2.0) mmol/L Calcium 7.9 L (8.5-10.1) mg/dL Magnesium (1.8-2.4) mg/dl Total Bilirubin (0.2-1.0) mg/dL AST (15-37) U/L ALT (14-59) U/L Alkaline Phosphatase (46-116) U/L Troponin I (0.00-0.056) ng/mL C-Reactive Protein (<1.0) mg/dL NT-Pro-B Natriuret Pep (0-450) pg/mL Total Protein (6.4-8.2) g/dl Albumin (3.4-5.0) g/dl Globulin gm/dL Albumin/Globulin Ratio (1-2) Ur Random Sodium (40-220) mEq/L Ketones (0.0-0.3) mM Result Diagrams: 06/02/19 10:30 06/02/19 18:43 Sepsis Event Note - Evaluation Sepsis Screening Result: No Definite Risk - Focused Exam Vital Signs: Vital Signs Temp Temp Pulse Pulse Resp BP BP 06/02/19 14:07 99.1 F 19 129/55 L 06/02/19 13:49 99.1 F 84 19 128/57 L 06/02/19 12:06 100.2 F 85 159/61 H 06/02/19 10:26 98.6 F 92 13 159/53 H Pulse Ox 06/02/19 14:07 95 06/02/19 13:49 94 L 06/02/19 12:06 99 06/02/19 10:26 100 Date Exam was Performed: 06/02/19 Time Exam was Performed: 20:33 Problem List Initiated/Reviewed/Updated: Yes Orders Last 24hrs: Active Orders 24 hr Category Date Time Status Admission Status [Patient Status] [ADT] Routine ADT 06/02/19 12:49 Active Chest 1V Frontal [CR] Stat Exams 06/02/19 10:39 Taken BMP [BASIC METABOLIC PANEL,BMP] [CHEM] Q4H Lab 06/02/19 18:30 Ordered CULTURE BLOOD [BC] Stat Lab 06/02/19 11:48 Received CULTURE BLOOD [BC] Stat Lab 06/02/19 12:04 Received CULTURE URINE [RM] Stat Lab 06/02/19 01:15 Received URINALYSIS W/O MICROSCOPIC [UA W/O MICROSCOPIC] [URIN] Lab 06/02/19 10:39 Ordered Stat Sodium Chloride 0.9% [Normal Saline] 1,000 ml Med 06/02/19 15:45 Active IV ASDIRECTED Blood Culture x2 Reflex Set [OM.PC] Stat Oth 06/02/19 10:39 Ordered Medication Orders Sodium Chloride (Normal Saline) 1,000 mls @ 100 mls/hr IV ASDIRECTED NICOL Assessment/Plan Comment:: Assessment * Severe hyponatremia, symptomatic * Likely mixed causes to include CHF, thiazide diuretic, possible large amount of irrigation during cystoscopy. * Patient started on normal saline 250 mL/h in the emergency room * Lasix 40 mg IV given in the emergency room * Corrected sodium of 117 with repeat corrected sodium 4 hours later of 119 * Urine osmolality 365, urine sodium 16, serum osmolality 184. * Congestive heart failure, unknown type * BNP 2220 * Given Lasix 40 mg IV in the emergency room * Good urine output after Lasix. * Paroxysmal A. fib * Patient reportedly came in to the emergency room in A. fib and when she had her EKG she was in sinus rhythm with first-degree AV block. In the ICU I witnessed her going in and out of atrial fibrillation. * She is not on anticoagulation at home. * Currently with gross hematuria secondary to cystoscopy * UTI after cystoscopy * Started on Rocephin 1 g in the emergency room. * Insulin-dependent diabetic * Patient has insulin pump and continuous blood sugar monitoring * Bladder cancer * Recent cystoscopy with cauterization on June 01, 2019 * Gross hematuria causing urinary retention * Urinary retention secondary to gross hematuria secondary to cauterization * Malone catheter placed in the emergency room * Continued gross blood from a Malone catheter * Hypertension * Unable to take morning medication secondary to vomiting * Amlodipine 10 mg daily, benazepril 20 mg daily, hydrochlorothiazide 25 mg daily, metoprolol tartrate 25 mg twice daily * Stage IV chronic renal insufficiency * Hypothyroidism * Family reports that her TSH recently was up to 40. This appears to be secondary to taking her thyroid with vitamins and breakfast. Plan * Admit to ICU for close monitoring and strict I's and O's * BMP every 4 hours to monitor sodium * 3% saline 50 mL x 1 secondary to symptomatic hyponatremia * Normal saline 100 mL/h following hypertonic saline assuming no more signs of symptoms and 4 to 6 mg/dL increase in sodium over the first few hours of admission. * Advance diet as tolerated * Rocephin 1 g daily * Urine culture * Echocardiogram on * Hemoglobin A1c * Use patient's own insulin pump * Restart antihypertensive medications other than hydrochlorothiazide * Stop hydrochlorothiazide. * Monitor fluid status and diurese as appropriate * Reconcile home meds * VTE prophylaxis: Patient has gross hematuria so will hold on chemoprophylaxis. SCDs placed. * CODE STATUS: Full code * Length of stay 2 to 3 days. - Mortality Measure Prognosis:: Good
[2019-06-02] MEDS ORDERED: Ondansetron 4 MG/2 ML SDV IV PRN (16:03)
[2019-06-02] MEDS ORDERED: Sodium Chloride 3% 500 ML IV SCH (16:30)
[2019-06-02] MEDS: Metoprolol Tartrate 25 MG Tab PO SCH (20:03)
[2019-06-03] MEDS: Sodium Chloride 0.9% 1,000 ML IV SCH (01:38)
[2019-06-03] MEDS ORDERED: Sodium Chloride 0.9% 1,000 ML IV SCH (04:30)
[2019-06-03] MEDS: Levothyroxine 112 MCG Tab PO SCH (05:49)
[2019-06-03 07:24] LABS: HEMOGLOBIN A1C 7.3 % (4.50-6.20)
[2019-06-03] MEDS ORDERED: 50% Dextrose in Water 50 ML Syringe IVPUSH PRN (07:29)
[2019-06-03] MEDS: amLODIPine 10 MG Tab PO SCH (08:09)
[2019-06-03] MEDS: Aspirin 81 MG Tab.Chew PO SCH (08:09)
[2019-06-03] MEDS: Metoprolol Tartrate 25 MG Tab PO SCH ×2 (08:10→21:06)
[2019-06-03] MEDS: Rosuvastatin 10 MG Tab PO SCH (08:10)
[2019-06-03] MEDS ORDERED: cefTRIAXone 1 GM in Sodium Chloride 0.9% 100 ML IV SCH (11:00)
--- NOTE | 2019-06-03 14:12 | PCM.PN ---
- General Info Date of Service: 06/03/19 Subjective Update: Patient is feeling better Slept ok Tolerating diet Feeling a little bloated Last BM 3-5 days, unclear - Patient Data Vitals - Most Recent: Last Vital Signs Temp 100.2 F 06/03/19 08:00 Pulse 90 06/03/19 08:10 Resp 18 06/03/19 08:00 BP 123/55 L 06/03/19 08:10 Pulse Ox 100 06/03/19 08:00 Weight - Most Recent: 90.718 kg - Exam General: Alert, Cooperative, No Acute Distress HEENT: Pupils Equal, Pupils Reactive, EOMI Neck: Supple, Trachea Midline, Carotid Bruit. No: Lymphadenopathy Lungs: Clear to Auscultation, Normal Respiratory Effort. No: Crackles, Rales, Rhonchi Cardiovascular: Regular Rate, Regular Rhythm, Murmurs (holosystolic murmur, non- radiating, IV/, increased with inspiration), Other (No S3) GI/Abdominal Exam: Normal Bowel Sounds, Soft, Non-Tender Extremities: Normal Inspection, Non-Tender Neurological: No New Focal Deficit Sepsis Event Note - Evaluation Sepsis Screening Result: No Definite Risk - Focused Exam Vital Signs: Vital Signs Temp Pulse Resp BP BP Pulse Ox 06/03/19 08:10 90 123/55 L 06/03/19 08:09 123/55 L 06/03/19 08:00 100.2 F 18 123/55 L 100 06/03/19 04:00 98.4 F 85 18 120/59 L 100 06/03/19 02:45 95 06/03/19 02:30 98 06/03/19 02:15 100 Date Exam was Performed: 06/03/19 Time Exam was Performed: 15:29 - Problem List & Annotations (1) Acute urinary retention SNOMED Code(s): 057643615 Code(s): R33.8 - OTHER RETENTION OF URINE Status: Acute Current Visit: Yes (2) Chronic renal insufficiency, stage IV (severe) SNOMED Code(s): 584107250 Code(s): N18.4 - CHRONIC KIDNEY DISEASE, STAGE 4 (SEVERE) Status: Acute Current Visit: Yes (3) Gross hematuria SNOMED Code(s): 898753199 Code(s): R31.0 - GROSS HEMATURIA Status: Acute Current Visit: Yes (4) Hyponatremia with decreased serum osmolality SNOMED Code(s): 566359972 Code(s): E87.1 - HYPO-OSMOLALITY AND HYPONATREMIA Status: Acute Current Visit: Yes (5) Bladder outlet obstruction SNOMED Code(s): 704450816 Code(s): N32.0 - BLADDER-NECK OBSTRUCTION Status: Acute Current Visit: No (6) Status post urological surgery SNOMED Code(s): 866182417, 264149423 Code(s): Z98.890 - OTHER SPECIFIED POSTPROCEDURAL STATES Status: Acute Current Visit: No (7) UTI, Urinary tract infectious disease SNOMED Code(s): 46735385 Code(s): N39.0 - URINARY TRACT INFECTION, SITE NOT SPECIFIED Status: Acute Current Visit: No (8) Normochromic normocytic anemia SNOMED Code(s): 32365093 Code(s): D64.9 - ANEMIA, UNSPECIFIED Status: Acute Current Visit: Yes (9) Type 1 diabetes mellitus SNOMED Code(s): 71614998 Code(s): E10.9 - TYPE 1 DIABETES MELLITUS WITHOUT COMPLICATIONS Status: Acute Current Visit: Yes - Problem List Review Problem List Initiated/Reviewed/Updated: Yes - Plan Plan:: Acute urinary retention Gross hematuria Bladder cancer s/p ablation + B-HCG 06/02 Ablation followed by beta HCG on 05/23 and discharged home --> unable to void with distended bladder--> brought to ED by family members Malone catheter placed in ED with bloody urine Consulted with urology in ED who recommended prophylactic ciprofloxacin As per AUA the recommended amount of doses is 1+ negative urine culture--> will discontinue Rocephin PLAN - Malone catheter care - Discontinue Rocephin Multifactorial hyponatremia with decreased serum osmolality Chronic renal insufficiency, stage IV (severe) Recent cystoscopy for ablation of bladder tumors + CKD stage IV + on thiazide diuretic + was on 180oz water at home + uncontrolled hypothyroid as per family Given 3% NS in ED New Na today 124 PLAN - Fluid restriction 1.2L - Continue holding thiazide diuretic, confirm indication - Continue to trend Na every 8h - Monitor Mental status - Continue levothyroxine - Keep balance as neutral as possible Type 1 diabetes mellitus, HbA1c- 7.3% (this admission) Insulin pump and CGM Patient's family dosing insulin as per home regimen PLAN - Continue control by family - PRN D50% Hypertension, controlled Chronic kidney disease, stage IV, GFR 27 Normochromic normocytic anemia At baseline as per chart review No signs of MAYE Likely worsening electrolyte disturbance No signs of active bleeding Current BP 123/55 PLAN - Monitor urine output - Renally dosed medications - Hold thiazide diuretic - Avoid nephrotoxic agents - Iron panel, B12, folic acid, reticulocyte count - Hold home meds for now PROPHYLAXIS DVT- SCD's, no pharmacologic due to hematuria GI- not indicated CODE STATUS: full code DISPOSITION: Patient admitted for normalization of sodium and monitorization, sodium level improved. Recently moved from [place], lives with son and daughter in law who works at assisted living facility. As per daughter her cognitive status has been declining so they have applied to the same facility she works at where she is likely to get a bed in the middle of the month. PT and OT ordered.
[2019-06-03] MEDS: Acetaminophen 325 MG Tab PO PRN (23:35)
[2019-06-04] MEDS: Levothyroxine 112 MCG Tab PO SCH (06:15)
--- NOTE | 2019-06-04 07:24 | CR ---
Chest: Portable view of the chest was obtained. Comparison: No prior chest imaging is available. Heart size is felt to be at the upper limits of normal. Upper mediastinum is normal. Lungs are clear with no acute parenchymal change. Bony structures are grossly intact. Impression: 1. Nothing acute is seen on portable chest x-ray. Diagnostic code #2 This report was dictated in [place] Standard Time
[2019-06-04] MEDS: Metoprolol Tartrate 25 MG Tab PO SCH ×2 (08:23→20:19)
[2019-06-04] MEDS: Rosuvastatin 10 MG Tab PO SCH (08:24)
[2019-06-04] MEDS: Aspirin 81 MG Tab.Chew PO SCH (08:24)
[2019-06-04] MEDS: amLODIPine 10 MG Tab PO SCH (08:24)
[2019-06-04] MEDS ORDERED: Psyllium Husk Powder Sugar Free 3.4 GM Packet PO SCH (11:00)
--- NOTE | 2019-06-04 13:53 | PCM.PN ---
- General Info Date of Service: 06/04/19 Subjective Update: No BM since prior to admission Feeling ok Slept ok Up to chair Tolerating diet but eating very little - Patient Data Vitals - Most Recent: Last Vital Signs Temp 98.9 F 06/04/19 08:07 Pulse 83 06/04/19 08:23 Resp 18 06/04/19 08:07 BP 145/63 H 06/04/19 08:24 Pulse Ox 92 L 06/04/19 08:26 Weight - Most Recent: 84.822 kg - Exam General: Alert, Oriented, Cooperative, No Acute Distress HEENT: Pupils Equal, Pupils Reactive Neck: Supple, Trachea Midline, No JVD, No Thyromegaly Lungs: Clear to Auscultation, Normal Respiratory Effort. No: Crackles, Rales, Rhonchi Cardiovascular: Regular Rate, Regular Rhythm. No: Murmurs, Gallops, Rubs GI/Abdominal Exam: Normal Bowel Sounds, Soft, Non-Tender Extremities: Normal Inspection Skin: Warm, Dry, Intact Sepsis Event Note - Evaluation Sepsis Screening Result: No Definite Risk - Problem List & Annotations (1) Acute urinary retention SNOMED Code(s): 979105132 Code(s): R33.8 - OTHER RETENTION OF URINE Status: Acute Current Visit: Yes (2) Chronic renal insufficiency, stage IV (severe) SNOMED Code(s): 204855087 Code(s): N18.4 - CHRONIC KIDNEY DISEASE, STAGE 4 (SEVERE) Status: Acute Current Visit: Yes (3) Gross hematuria SNOMED Code(s): 065753914 Code(s): R31.0 - GROSS HEMATURIA Status: Acute Current Visit: Yes (4) Hyponatremia with decreased serum osmolality SNOMED Code(s): 330865370 Code(s): E87.1 - HYPO-OSMOLALITY AND HYPONATREMIA Status: Acute Current Visit: Yes (5) Bladder outlet obstruction SNOMED Code(s): 238134110 Code(s): N32.0 - BLADDER-NECK OBSTRUCTION Status: Acute Current Visit: No (6) Status post urological surgery SNOMED Code(s): 238908443, 270174276 Code(s): Z98.890 - OTHER SPECIFIED POSTPROCEDURAL STATES Status: Acute Current Visit: No (7) UTI, Urinary tract infectious disease SNOMED Code(s): 02249647 Code(s): N39.0 - URINARY TRACT INFECTION, SITE NOT SPECIFIED Status: Acute Current Visit: No (8) Normochromic normocytic anemia SNOMED Code(s): 40368698 Code(s): D64.9 - ANEMIA, UNSPECIFIED Status: Acute Current Visit: Yes (9) Type 1 diabetes mellitus SNOMED Code(s): 18153685 Code(s): E10.9 - TYPE 1 DIABETES MELLITUS WITHOUT COMPLICATIONS Status: Acute Current Visit: Yes (10) Iron deficiency anemia SNOMED Code(s): 65015612 Code(s): D50.9 - IRON DEFICIENCY ANEMIA, UNSPECIFIED Status: Acute Current Visit: Yes - Problem List Review Problem List Initiated/Reviewed/Updated: Yes - Plan Plan:: Acute urinary retention Gross hematuria Bladder cancer s/p ablation + B-HCG 06/02 Ablation followed by beta HCG on 05/23 and discharged home --> unable to void with distended bladder--> brought to ED by family members Malone catheter placed in ED with bloody urine Consulted with urology in ED who recommended prophylactic ciprofloxacin As per AUA the recommended amount of doses is 1+ negative urine culture--> will discontinue Rocephin PLAN - Malone catheter care Multifactorial hyponatremia with decreased serum osmolality Chronic renal insufficiency, stage IV (severe) Recent cystoscopy for ablation of bladder tumors + CKD stage IV + on thiazide diuretic + was on 180oz water at home + uncontrolled hypothyroid as per family Given 3% NS in ED Sodium today 129 PLAN - Fluid restriction 1.2L - Continue holding thiazide diuretic, confirm indication - Continue to trend Na every 8h - Monitor Mental status - Continue levothyroxine - Keep balance as neutral as possible Type 1 diabetes mellitus, HbA1c- 7.3% (this admission) Insulin pump and CGM Patient's family dosing insulin as per home regimen PLAN - Continue control by family and patient with carb counting - PRN D50% Hypertension, controlled Chronic kidney disease, stage IV, GFR 27 Iron deficiency anemia At baseline as per chart review No signs of MAYE Likely worsening electrolyte disturbance No signs of active bleeding Iron deficit 1.5g noraml B12, folic acid and reticulocyte count PLAN - Monitor urine output - Renally dosed medications - Hold thiazide diuretic - Avoid nephrotoxic agents - Iron sucrose 500mg PROPHYLAXIS DVT- SCD's, no pharmacologic due to hematuria GI- not indicated CODE STATUS: full code DISPOSITION: Patient admitted for normalization of sodium and monitorization, sodium level improved. Recently moved from [place], lives with son and daughter in law who works at assisted living facility. As per daughter her cognitive status has been declining so they have applied to the same facility she works at where she is likely to get a bed in the middle of the month. PT and OT ordered.
[2019-06-05] MEDS: Levothyroxine 112 MCG Tab PO SCH (06:04)
--- NOTE | 2019-06-05 07:40 | PCM.PN ---
- General Info Date of Service: 06/05/19 Admission Dx/Problem (Free Text): Admission Diagnosis/Problem Admission Diagnosis/Problem Nausea and vomiting in adult patient Subjective Update: No overnight o acute issues. Had a bowel movement yesterday. Functional Status: Reports: Pain Controlled, Tolerating Diet, Urinating - Review of Systems General: Denies: Fever, Chills HEENT: Reports: No Symptoms Pulmonary: Denies: Shortness of Breath Cardiovascular: Denies: Chest Pain, Dyspnea on Exertion Gastrointestinal: Denies: Abdominal Pain, Melena, Nausea, Vomiting Genitourinary: Reports: Hematuria Musculoskeletal: Reports: No Symptoms Skin: Denies: Cyanosis, Bruising, Rash Neurological: Denies: Confusion, Dizziness, Seizure Psychiatric: Denies: Confusion, Anxiety, Hallucinations Systems Review Comment:: No overnight issues. She complaints of lower abdominal pain this AM. She has not had a BM since a couple of days ago. She is passing gas. - Patient Data Vitals - Most Recent: Last Vital Signs Temp 37.4 C 06/05/19 03:58 Pulse 82 06/05/19 03:58 Resp 16 06/05/19 03:58 BP 133/60 06/05/19 03:58 Pulse Ox 91 L 06/05/19 03:58 Weight - Most Recent: 84.55 kg I&O - Last 24 Hours: Intake & Output 06/04/19 06/05/19 06/05/19 22:59 06:59 14:59 Intake Total 520 50 300 Output Total 910 1305 Balance -390 -1255 300 Imaging Impressions - Last 24 Hours: 2D Echo: EF of 60-65% with No RWMA Lab Results Last 24 Hours: Laboratory Results - last 24 hr 06/04/19 06/04/19 06/04/19 Range/Units 06:15 06:15 12:15 WBC 7.86 (3.98-10.04) K/mm3 RBC 3.12 L (3.98-5.22) M/mm3 Hgb 8.8 L (11.2-15.7) gm/dl Hct 26.7 L (34.1-44.9) % MCV 85.6 D (79.4-94.8) fl MCH 28.2 (25.6-32.2) pg MCHC 33.0 (32.2-35.5) g/dl RDW Std Deviation 40.8 (36.4-46.3) fL Plt Count 226 (182-369) K/mm3 MPV 9.9 (9.4-12.3) fl Neut % (Auto) 67.3 (34.0-71.1) % Lymph % (Auto) 13.9 L (19.3-51.7) % [place] % (Auto) 14.4 H (4.7-12.5) % Eos % (Auto) 3.7 (0.7-5.8) Baso % (Auto) 0.4 (0.1-1.2) % Neut # (Auto) 5.30 (1.56-6.13) K/mm3 Lymph # (Auto) 1.09 L (1.18-3.74) K/mm3 [place] # (Auto) 1.13 H (0.24-0.36) K/mm3 Eos # (Auto) 0.29 (0.04-0.36) K/mm3 Baso # (Auto) 0.03 (0.01-0.08) K/mm3 Sodium 129 L (136-145) mEq/L Potassium 4.8 (3.5-5.1) mEq/L Chloride 98 (98-107) mEq/L Carbon Dioxide 22 (21-32) mEq/L Anion Gap 13.8 (5-15) BUN 45 H (7-18) mg/dL Creatinine 1.8 H (0.55-1.02) mg/dL Est Cr Clr Drug Dosing TNP Estimated GFR (MDRD) 27 (>60) mL/min BUN/Creatinine Ratio 25.0 H (14-18) Glucose 209 H (83-115) mg/dL POC Glucose 194 H (83-110) mg/dL Calcium 7.9 L (8.5-10.1) mg/dL Phosphorus (2.6-4.7) mg/dL Magnesium (1.8-2.4) mg/dl 06/04/19 06/04/19 06/04/19 Range/Units 13:04 14:35 14:35 WBC (3.98-10.04) K/mm3 RBC (3.98-5.22) M/mm3 Hgb (11.2-15.7) gm/dl Hct (34.1-44.9) % MCV (79.4-94.8) fl MCH (25.6-32.2) pg MCHC (32.2-35.5) g/dl RDW Std Deviation (36.4-46.3) fL Plt Count (182-369) K/mm3 MPV (9.4-12.3) fl Neut % (Auto) (34.0-71.1) % Lymph % (Auto) (19.3-51.7) % [place] % (Auto) (4.7-12.5) % Eos % (Auto) (0.7-5.8) Baso % (Auto) (0.1-1.2) % Neut # (Auto) (1.56-6.13) K/mm3 Lymph # (Auto) (1.18-3.74) K/mm3 [place] # (Auto) (0.24-0.36) K/mm3 Eos # (Auto) (0.04-0.36) K/mm3 Baso # (Auto) (0.01-0.08) K/mm3 Sodium 132 L (136-145) mEq/L Potassium 4.7 (3.5-5.1) mEq/L Chloride 99 (98-107) mEq/L Carbon Dioxide 23 (21-32) mEq/L Anion Gap 14.7 (5-15) BUN 42 H (7-18) mg/dL Creatinine 1.8 H (0.55-1.02) mg/dL Est Cr Clr Drug Dosing TNP Estimated GFR (MDRD) 27 (>60) mL/min BUN/Creatinine Ratio 23.3 H (14-18) Glucose 146 H (83-115) mg/dL POC Glucose 205 H (83-110) mg/dL Calcium 8.6 (8.5-10.1) mg/dL Phosphorus 3.4 (2.6-4.7) mg/dL Magnesium 2.2 (1.8-2.4) mg/dl 06/04/19 06/04/19 06/04/19 Range/Units 16:02 17:45 18:37 WBC (3.98-10.04) K/mm3 RBC (3.98-5.22) M/mm3 Hgb (11.2-15.7) gm/dl Hct (34.1-44.9) % MCV (79.4-94.8) fl MCH (25.6-32.2) pg MCHC (32.2-35.5) g/dl RDW Std Deviation (36.4-46.3) fL Plt Count (182-369) K/mm3 MPV (9.4-12.3) fl Neut % (Auto) (34.0-71.1) % Lymph % (Auto) (19.3-51.7) % [place] % (Auto) (4.7-12.5) % Eos % (Auto) (0.7-5.8) Baso % (Auto) (0.1-1.2) % Neut # (Auto) (1.56-6.13) K/mm3 Lymph # (Auto) (1.18-3.74) K/mm3 [place] # (Auto) (0.24-0.36) K/mm3 Eos # (Auto) (0.04-0.36) K/mm3 Baso # (Auto) (0.01-0.08) K/mm3 Sodium (136-145) mEq/L Potassium (3.5-5.1) mEq/L Chloride (98-107) mEq/L Carbon Dioxide (21-32) mEq/L Anion Gap (5-15) BUN (7-18) mg/dL Creatinine (0.55-1.02) mg/dL Est Cr Clr Drug Dosing Estimated GFR (MDRD) (>60) mL/min BUN/Creatinine Ratio (14-18) Glucose (83-115) mg/dL POC Glucose 125 H 119 H 135 H (83-110) mg/dL Calcium (8.5-10.1) mg/dL Phosphorus (2.6-4.7) mg/dL Magnesium (1.8-2.4) mg/dl 06/04/19 06/04/19 06/04/19 Range/Units 20:28 22:23 22:23 WBC (3.98-10.04) K/mm3 RBC (3.98-5.22) M/mm3 Hgb (11.2-15.7) gm/dl Hct (34.1-44.9) % MCV (79.4-94.8) fl MCH (25.6-32.2) pg MCHC (32.2-35.5) g/dl RDW Std Deviation (36.4-46.3) fL Plt Count (182-369) K/mm3 MPV (9.4-12.3) fl Neut % (Auto) (34.0-71.1) % Lymph % (Auto) (19.3-51.7) % [place] % (Auto) (4.7-12.5) % Eos % (Auto) (0.7-5.8) Baso % (Auto) (0.1-1.2) % Neut # (Auto) (1.56-6.13) K/mm3 Lymph # (Auto) (1.18-3.74) K/mm3 [place] # (Auto) (0.24-0.36) K/mm3 Eos # (Auto) (0.04-0.36) K/mm3 Baso # (Auto) (0.01-0.08) K/mm3 Sodium 129 L (136-145) mEq/L Potassium 4.5 (3.5-5.1) mEq/L Chloride 99 (98-107) mEq/L Carbon Dioxide 22 (21-32) mEq/L Anion Gap 12.5 (5-15) BUN 41 H (7-18) mg/dL Creatinine 1.7 H (0.55-1.02) mg/dL Est Cr Clr Drug Dosing 22.92 Estimated GFR (MDRD) 29 (>60) mL/min BUN/Creatinine Ratio 24.1 H (14-18) Glucose 173 H (83-115) mg/dL POC Glucose 221 H (83-110) mg/dL Calcium 7.8 L (8.5-10.1) mg/dL Phosphorus 3.2 (2.6-4.7) mg/dL Magnesium 2.0 (1.8-2.4) mg/dl 06/05/19 06/05/19 Range/Units 05:55 05:55 WBC (3.98-10.04) K/mm3 RBC (3.98-5.22) M/mm3 Hgb (11.2-15.7) gm/dl Hct (34.1-44.9) % MCV (79.4-94.8) fl MCH (25.6-32.2) pg MCHC (32.2-35.5) g/dl RDW Std Deviation (36.4-46.3) fL Plt Count (182-369) K/mm3 MPV (9.4-12.3) fl Neut % (Auto) (34.0-71.1) % Lymph % (Auto) (19.3-51.7) % [place] % (Auto) (4.7-12.5) % Eos % (Auto) (0.7-5.8) Baso % (Auto) (0.1-1.2) % Neut # (Auto) (1.56-6.13) K/mm3 Lymph # (Auto) (1.18-3.74) K/mm3 [place] # (Auto) (0.24-0.36) K/mm3 Eos # (Auto) (0.04-0.36) K/mm3 Baso # (Auto) (0.01-0.08) K/mm3 Sodium 133 L (136-145) mEq/L Potassium 4.4 (3.5-5.1) mEq/L Chloride 100 (98-107) mEq/L Carbon Dioxide 24 (21-32) mEq/L Anion Gap 13.4 (5-15) BUN 37 H (7-18) mg/dL Creatinine 1.7 H (0.55-1.02) mg/dL Est Cr Clr Drug Dosing 22.92 Estimated GFR (MDRD) 29 (>60) mL/min BUN/Creatinine Ratio 21.8 H (14-18) Glucose 104 (83-115) mg/dL POC Glucose (83-110) mg/dL Calcium 8.4 L (8.5-10.1) mg/dL Phosphorus 3.4 (2.6-4.7) mg/dL Magnesium 2.2 (1.8-2.4) mg/dl [place] Results Last 24 Hours: Microbiology 06/02/19 12:04 Aerobic Blood Culture - Preliminary Blood - Venous - Lab Draw NO GROWTH AFTER 2 DAYS Anaerobic Blood Culture - Final 06/02/19 11:48 Aerobic Blood Culture - Preliminary Blood - Venous NO GROWTH AFTER 2 DAYS Anaerobic Blood Culture - Preliminary NO GROWTH AFTER 2 DAYS 06/02/19 01:15 Urine Culture - Final Urine, Catheterized NO GROWTH AFTER 2 DAYS Med Orders - Current: Current Medications Acetaminophen (Tylenol) 650 mg PO Q4H PRN PRN Reason: Pain (Mild 1-3)/fever Last Admin: 06/03/19 23:35 Dose: 650 mg Amlodipine Besylate (Norvasc) 10 mg PO DAILY [facility] Last Admin: 06/04/19 08:24 Dose: 10 mg Aspirin (Aspirin) 81 mg PO DAILY [facility] Last Admin: 06/04/19 08:24 Dose: 81 mg Benazepril HCl (Lotensin) 20 mg PO DAILY [facility] Last Admin: 06/04/19 08:24 Dose: 20 mg Dextrose/Water (Dextrose 50% In Water) 50 ml IVPUSH ASDIRECTED PRN PRN Reason: Blood Glucose Levothyroxine Sodium (Levothyroxine) 112 mcg PO ACBREAKFAST [facility] Last Admin: 06/05/19 06:04 Dose: 112 mcg Metoprolol Tartrate (Lopressor) 25 mg PO BID [facility] Last Admin: 06/04/19 20:19 Dose: 25 mg Ondansetron HCl (Zofran) 4 mg IV Q4H PRN PRN Reason: Nausea/Vomiting Last Admin: 06/02/19 20:24 Dose: 4 mg Rosuvastatin Calcium (Crestor) 10 mg PO DAILY [facility] Last Admin: 06/04/19 08:24 Dose: 10 mg Discontinued Medications Acetaminophen (Tylenol) 650 mg PO ONETIME ONE Stop: 06/02/19 11:01 Last Admin: 06/02/19 10:58 Dose: 650 mg Furosemide (Lasix) 40 mg IVPUSH NOW ONE Stop: 06/02/19 12:52 Last Admin: 06/02/19 13:02 Dose: 40 mg Sodium Chloride (Normal Saline) 1,000 mls @ 250 mls/hr IV ASDIRECTED [facility] Last Admin: 06/02/19 10:58 Dose: 250 mls/hr Ceftriaxone Sodium 1 gm/ (Sodium Chloride) 100 mls @ 200 mls/hr IV ONETIME ONE Stop: 06/02/19 11:48 Last Admin: 06/02/19 11:52 Dose: 200 mls/hr Magnesium Sulfate 2 gm/ Premix 50 mls @ 25 mls/hr IV ONETIME ONE Stop: 06/02/19 14:03 Last Admin: 06/02/19 12:44 Dose: 25 mls/hr Sodium Chloride (Normal Saline) 1,000 mls @ 100 mls/hr IV ASDIRECTED [facility] Last Admin: 06/03/19 01:38 Dose: 100 mls/hr Ceftriaxone Sodium 1 gm/ (Sodium Chloride) 100 mls @ 200 mls/hr IV Q24H [facility] Last Admin: 06/03/19 11:22 Dose: 200 mls/hr Sodium Chloride (Sodium Chloride 3%) 500 mls @ 50 mls/hr IV ASDIRECTED [facility] Stop: 06/02/19 17:31 Last Admin: 06/02/19 16:34 Dose: 50 mls/hr Sodium Chloride (Normal Saline) 1,000 mls @ 50 mls/hr IV ASDIRECTED [facility] Last Admin: 06/03/19 04:29 Dose: 50 mls/hr Ferric Sodium Gluconate Complex 250 mg/ Sodium Chloride 120 mls @ 60 mls/hr IV ONETIME ONE Stop: 06/04/19 18:29 Last Admin: 06/04/19 16:27 Dose: 60 mls/hr Ondansetron HCl (Zofran) 4 mg IVPUSH ONETIME ONE Stop: 06/02/19 10:39 Last Admin: 06/02/19 10:58 Dose: 4 mg Psyllium Husk (Metamucil Sugar Free) 1 packet PO TIDAC [facility] Last Admin: 06/04/19 10:34 Dose: 1 packet - Exam General: Alert, Oriented, Cooperative HEENT: Pupils Equal, Pupils Reactive, EOMI, Mucous Membr. Moist/[place] Neck: Supple Lungs: Clear to Auscultation, Normal Respiratory Effort Cardiovascular: Regular Rate, Regular Rhythm, No Murmurs GI/Abdominal Exam: Normal Bowel Sounds, Soft, No Organomegaly, No Distention, No Abnormal Bruit, Tender (on lower abdomen) (Female) Exam: Normal External Exam, Normal Speculum Exam Back Exam: Normal Inspection, Full Range of Motion Extremities: Normal Inspection, Normal Range of Motion, Non-Tender, No Pedal Edema, Normal Capillary Refill Peripheral Pulses: 2+: Dorsalis Pedis (L), Dorsalis Pedis (R) Skin: Warm, Dry, Intact Neurological: No New Focal Deficit Psy/Mental Status: Alert, Normal Affect, Normal Mood Sepsis Event Note - Evaluation Sepsis Screening Result: No Definite Risk - Focused Exam Vital Signs: Vital Signs Temp Pulse Pulse Resp BP BP Pulse Ox 06/05/19 03:58 37.4 C 82 16 133/60 91 L 06/04/19 20:48 37.7 C 96 18 139/57 L 94 L 06/04/19 20:19 94 139/57 L Date Exam was Performed: 06/06/19 Time Exam was Performed: 21:02 - Problem List Review Problem List Initiated/Reviewed/Updated: Yes - Plan Plan:: Acute urinary retention Gross hematuria likely 2/2 Hemorrhagic cystitis Hemorrhagic cystitis Bladder cancer s/p ablation + B-HCG 06/02 Abdominal Pain/Bladder Spasm +/- Constipation Constipation Ablation followed by beta HCG on 05/23 and discharged home --> unable to void with distended bladder--> brought to ED by family members Malone catheter placed in ED with bloody urine Consulted with urology in ED who recommended prophylactic ciprofloxacin As per AUA the recommended amount of doses is 1+ negative urine culture--> Discontinued Rocephin She is at risk for UTI due to cystitis Last BM a couple of days ago PLAN - Malone catheter care - Oxybutinin 5 mg po BID -->change to 10 mg po BID - KUB to r/o constipation--> slight increased stool within the colon - Bowel prep - Urology follow up after discharge - Resume Oral Quinolone; We carry not Cipro so we will use Levaquin instead for pharmacy to dose Multifactorial hyponatremia with decreased serum osmolality Chronic renal insufficiency, stage IV (severe) Recent cystoscopy for ablation of bladder tumors + CKD stage IV + on thiazide diuretic + was on 180oz water at home + uncontrolled hypothyroid as per family Given 3% NS in ED Also on HCTZ known to cause hyponatemia Sodium today 133 (129 yesterday)--> now 132 Urine sodium 19-->now 109 (normal); she is now able to concentrate PLAN - Continue Fluid restriction 1.2L - Continue holding thiazide diuretic, confirm indication - Monitor Mental status - Continue levothyroxine - Keep balance as neutral as possible Type 1 diabetes mellitus, HbA1c- 7.3% (this admission) Insulin pump and CGM Patient's family dosing insulin as per home regimen Not well controlled PLAN - Continue control by family and patient with carb counting - Diabetic Education to check insulin pump; not matching with our unit read per nurse - Lantus 10 units SubQ BID with Accu-check - ISS change to high dose level - PRN D50% Hypertension, not controlled Chronic kidney disease, stage IV, GFR 27 Iron deficiency anemia Has underlying Anemia of chronic disease At baseline as per chart review No signs of MAYE Likely worsening electrolyte disturbance No signs of active bleeding Iron deficit 1.5g; Likely has a component of Anemia of Chronic Disease with her underlying CKD Normal B12, folic acid and reticulocyte count Blood Pressure-not well controlled Hgb is now 9.1 PLAN - Monitor urine output - Renally dosed medications - Continue to hold thiazide diuretic due to Hyponatremia - Amlodipin 10 mg po Daily, Metoprolol Tartrate 25 mg p[o BID and ACEI 20 mg po daily - PRN Hydralazine 15 mg IVP Q4H for BP > 150/90 mmHg - Lasix 20 mg po daily to start in AM - Avoid nephrotoxic agents - Iron sucrose 500mg Mild Cognitive Impairment - As per INVESTIGATOR NARCOTICS eval - IZABEL for placement as per INVESTIGATOR NARCOTICS's recommendations PROPHYLAXIS DVT- SCD's, no pharmacologic due to hematuria GI- not indicated CODE STATUS: full code DISPOSITION: Possible discharge next week pending placement. LOS > 96hrs pending placement which likely would not happen until next week: Sat-Saturday.
[2019-06-05] MEDS: Metoprolol Tartrate 25 MG Tab PO SCH ×2 (08:24→21:13)
[2019-06-05] MEDS: Rosuvastatin 10 MG Tab PO SCH (08:24)
[2019-06-05] MEDS: Aspirin 81 MG Tab.Chew PO SCH (08:25)
[2019-06-05] MEDS: amLODIPine 10 MG Tab PO SCH (08:25)
[2019-06-05] MEDS: Insulin Glarg,Human.Rec.Analog 100 Unit/ML SUBCUT SCH ×3 (09:23→22:00)
[2019-06-05] MEDS ORDERED: Levofloxacin 500 MG Tab PO SCH (11:45)
[2019-06-05] MEDS ORDERED: hydrALAZINE 20 MG/ML SDV IVPUSH PRN (11:57)
[2019-06-05] MEDS: Levofloxacin 750 MG Tab PO SCH (13:27)
[2019-06-05] MEDS: Insulin Lispro 100 Units/ML 3 ML Vial SUBCUT SCH (18:27)
[2019-06-05] MEDS: Acetaminophen 325 MG Tab PO PRN (21:12)
[2019-06-05] MEDS ORDERED: Acetaminophen/HYDROcodone 325-5 MG Tab PO PRN (21:17)
[2019-06-05] MEDS ORDERED: HYDROmorphone 0.5 MG/0.5 ML Syringe IVPUSH PRN (21:17)
[2019-06-05] MEDS ORDERED: Oxybutynin 5 MG Tab.ER PO ONE (21:30)
[2019-06-06] MEDS: Insulin Lispro 100 Units/ML 3 ML Vial SUBCUT SCH ×5 (00:54→21:41)
[2019-06-06] MEDS: Levothyroxine 112 MCG Tab PO SCH (06:53)
[2019-06-06] MEDS ORDERED: Oxybutynin 5 MG Tab PO SCH (09:00)
[2019-06-06] MEDS ORDERED: Levofloxacin 500 MG Tab PO SCH (09:00)
[2019-06-06] MEDS: Aspirin 81 MG Tab.Chew PO SCH (09:37)
[2019-06-06] MEDS: Metoprolol Tartrate 25 MG Tab PO SCH ×2 (09:37→21:42)
[2019-06-06] MEDS: Rosuvastatin 10 MG Tab PO SCH (09:37)
[2019-06-06] MEDS: amLODIPine 10 MG Tab PO SCH (09:38)
[2019-06-06] MEDS: Insulin Glarg,Human.Rec.Analog 100 Unit/ML SUBCUT SCH (09:38)
[2019-06-06] MEDS ORDERED: Oxybutynin 5 MG Tab PO ONE (10:08)
--- NOTE | 2019-06-06 10:50 | CR ---
Abdomen: Supine view of the abdomen was obtained. Comparison: No previous study. Slight increased stool within the colon is noted. Previous lumbar spine surgery is seen. Mild degenerative change is scattered throughout the spine. No abnormal calcifications or soft tissue abnormality is seen. Impression: 1. Findings as noted above. 2. Nothing acute is seen. Diagnostic code #2 This report was dictated in [place] Standard Time
[2019-06-06] MEDS ORDERED: Lactulose Soln 10 GM/15 ML 30 ML UD Cup PO ONE (11:22)
[2019-06-06] MEDS ORDERED: Insulin Glarg,Human.Rec.Analog 100 Unit/ML SUBCUT ONE (21:30)
[2019-06-06] MEDS: Oxybutynin 5 MG Tab PO SCH (21:38)
[2019-06-07] MEDS: Levothyroxine 112 MCG Tab PO SCH (05:39)
--- NOTE | 2019-06-07 07:02 | PCM.PN ---
- General Info Date of Service: 06/07/19 Admission Dx/Problem (Free Text): Admission Diagnosis/Problem Admission Diagnosis/Problem Nausea and vomiting in adult patient Subjective Update: No overnight or acute issues. She rested well last night and no new complaints this AM. Functional Status: Reports: Pain Controlled, Tolerating Diet, Ambulating, Urinating. Denies: New Symptoms - Review of Systems General: Denies: Fever, Weakness, Fatigue, Malaise, Chills HEENT: Reports: No Symptoms Pulmonary: Denies: Shortness of Breath, Pleuritic Chest Pain, Cough Cardiovascular: Denies: Chest Pain, Dyspnea on Exertion, Lightheadedness Gastrointestinal: Denies: Abdominal Pain, Nausea, Vomiting Genitourinary: Reports: No Symptoms Musculoskeletal: Reports: No Symptoms Skin: Denies: Cyanosis, Mottled, Pallor, Diaphoresis, Rash Neurological: Denies: Confusion, Numbness, Trouble Speaking, Weakness Psychiatric: Denies: Anxiety, Agitation, Hallucinations - Patient Data Vitals - Most Recent: Last Vital Signs Temp 36.8 C 06/07/19 03:03 Pulse 84 06/07/19 03:03 Resp 18 06/07/19 03:03 BP 142/61 H 06/07/19 03:03 Pulse Ox 94 L 06/07/19 03:03 Weight - Most Recent: 81.193 kg I&O - Last 24 Hours: Intake & Output 06/06/19 06/07/19 06/07/19 22:59 06:59 14:59 Intake Total 630 150 Output Total 700 750 Balance -70 -600 Lab Results Last 24 Hours: Laboratory Results - last 24 hr 06/06/19 06/06/19 06/06/19 Range/Units 07:02 07:32 07:32 WBC 7.54 (3.98-10.04) K/mm3 RBC 3.30 L (3.98-5.22) M/mm3 Hgb 9.3 L (11.2-15.7) gm/dl Hct 28.1 L (34.1-44.9) % MCV 85.2 (79.4-94.8) fl MCH 28.2 (25.6-32.2) pg MCHC 33.1 (32.2-35.5) g/dl RDW Std Deviation 40.4 (36.4-46.3) fL Plt Count 272 (182-369) K/mm3 MPV 9.2 L (9.4-12.3) fl Neut % (Auto) 66.1 (34.0-71.1) % Lymph % (Auto) 14.2 L (19.3-51.7) % [place] % (Auto) 13.4 H (4.7-12.5) % Eos % (Auto) 5.6 (0.7-5.8) Baso % (Auto) 0.4 (0.1-1.2) % Neut # (Auto) 4.99 (1.56-6.13) K/mm3 Lymph # (Auto) 1.07 L (1.18-3.74) K/mm3 [place] # (Auto) 1.01 H (0.24-0.36) K/mm3 Eos # (Auto) 0.42 H (0.04-0.36) K/mm3 Baso # (Auto) 0.03 (0.01-0.08) K/mm3 Sodium 132 L (136-145) mEq/L Potassium 4.5 (3.5-5.1) mEq/L Chloride 99 (98-107) mEq/L Carbon Dioxide 23 (21-32) mEq/L Anion Gap 14.5 (5-15) BUN 35 H (7-18) mg/dL Creatinine 1.5 H (0.55-1.02) mg/dL Est Cr Clr Drug Dosing 25.98 mL/min Estimated GFR (MDRD) 34 (>60) mL/min BUN/Creatinine Ratio 23.3 H (14-18) Glucose 127 H (83-115) mg/dL POC Glucose 129 H (83-110) mg/dL Calcium 8.8 (8.5-10.1) mg/dL Magnesium 1.9 (1.8-2.4) mg/dl 06/06/19 06/06/19 06/06/19 Range/Units 11:41 14:05 17:49 WBC (3.98-10.04) K/mm3 RBC (3.98-5.22) M/mm3 Hgb (11.2-15.7) gm/dl Hct (34.1-44.9) % MCV (79.4-94.8) fl MCH (25.6-32.2) pg MCHC (32.2-35.5) g/dl RDW Std Deviation (36.4-46.3) fL Plt Count (182-369) K/mm3 MPV (9.4-12.3) fl Neut % (Auto) (34.0-71.1) % Lymph % (Auto) (19.3-51.7) % [place] % (Auto) (4.7-12.5) % Eos % (Auto) (0.7-5.8) Baso % (Auto) (0.1-1.2) % Neut # (Auto) (1.56-6.13) K/mm3 Lymph # (Auto) (1.18-3.74) K/mm3 [place] # (Auto) (0.24-0.36) K/mm3 Eos # (Auto) (0.04-0.36) K/mm3 Baso # (Auto) (0.01-0.08) K/mm3 Sodium (136-145) mEq/L Potassium (3.5-5.1) mEq/L Chloride (98-107) mEq/L Carbon Dioxide (21-32) mEq/L Anion Gap (5-15) BUN (7-18) mg/dL Creatinine (0.55-1.02) mg/dL Est Cr Clr Drug Dosing mL/min Estimated GFR (MDRD) (>60) mL/min BUN/Creatinine Ratio (14-18) Glucose (83-115) mg/dL POC Glucose 369 H 376 H 198 H (83-110) mg/dL Calcium (8.5-10.1) mg/dL Magnesium (1.8-2.4) mg/dl 06/06/19 06/07/19 Range/Units 20:49 06:33 WBC (3.98-10.04) K/mm3 RBC (3.98-5.22) M/mm3 Hgb (11.2-15.7) gm/dl Hct (34.1-44.9) % MCV (79.4-94.8) fl MCH (25.6-32.2) pg MCHC (32.2-35.5) g/dl RDW Std Deviation (36.4-46.3) fL Plt Count (182-369) K/mm3 MPV (9.4-12.3) fl Neut % (Auto) (34.0-71.1) % Lymph % (Auto) (19.3-51.7) % [place] % (Auto) (4.7-12.5) % Eos % (Auto) (0.7-5.8) Baso % (Auto) (0.1-1.2) % Neut # (Auto) (1.56-6.13) K/mm3 Lymph # (Auto) (1.18-3.74) K/mm3 [place] # (Auto) (0.24-0.36) K/mm3 Eos # (Auto) (0.04-0.36) K/mm3 Baso # (Auto) (0.01-0.08) K/mm3 Sodium (136-145) mEq/L Potassium (3.5-5.1) mEq/L Chloride (98-107) mEq/L Carbon Dioxide (21-32) mEq/L Anion Gap (5-15) BUN (7-18) mg/dL Creatinine (0.55-1.02) mg/dL Est Cr Clr Drug Dosing mL/min Estimated GFR (MDRD) (>60) mL/min BUN/Creatinine Ratio (14-18) Glucose (83-115) mg/dL POC Glucose 279 H 134 H (83-110) mg/dL Calcium (8.5-10.1) mg/dL Magnesium (1.8-2.4) mg/dl [place] Results Last 24 Hours: Microbiology 06/02/19 12:04 Aerobic Blood Culture - Preliminary Blood - Venous - Lab Draw NO GROWTH AFTER 4 DAYS Anaerobic Blood Culture - Final 06/02/19 11:48 Aerobic Blood Culture - Preliminary Blood - Venous NO GROWTH AFTER 4 DAYS Anaerobic Blood Culture - Preliminary NO GROWTH AFTER 4 DAYS Med Orders - Current: Current Medications Acetaminophen (Tylenol) 650 mg PO Q4H PRN PRN Reason: Pain (Mild 1-3)/fever Last Admin: 06/05/19 21:12 Dose: 650 mg Hydrocodone Bitart/Acetaminophen ([place] 325-5 Mg) 1 tab PO Q4H PRN PRN Reason: Pain Amlodipine Besylate (Norvasc) 10 mg PO DAILY [facility] Last Admin: 06/06/19 09:38 Dose: 10 mg Aspirin (Aspirin) 81 mg PO DAILY [facility] Last Admin: 06/06/19 09:37 Dose: 81 mg Benazepril HCl (Lotensin) 20 mg PO DAILY [facility] Last Admin: 06/06/19 09:38 Dose: 20 mg Dextrose/Water (Dextrose 50% In Water) 50 ml IVPUSH ASDIRECTED PRN PRN Reason: Blood Glucose Furosemide (Lasix) 20 mg PO DAILY [facility] Hydralazine HCl (Apresoline) 15 mg IVPUSH Q4H PRN PRN Reason: Hypertension Hydromorphone HCl (Dilaudid) 0.5 mg IVPUSH Q4H PRN PRN Reason: Pain Last Admin: 06/05/19 21:31 Dose: 0.5 mg Insulin Glargine (Lantus) 10 unit SUBCUT BID [facility] Insulin Human Lispro (Humalog) 0 unit SUBCUT QIDACANDBED [facility]; Protocol Last Admin: 06/06/19 21:41 Dose: 9 units Levofloxacin (Levaquin) 750 mg PO Q48H [facility] Last Admin: 06/05/19 13:27 Dose: 750 mg Levothyroxine Sodium (Levothyroxine) 112 mcg PO ACBREAKFAST [facility] Last Admin: 06/07/19 05:39 Dose: 112 mcg Metoprolol Tartrate (Lopressor) 25 mg PO BID [facility] Last Admin: 06/06/19 21:42 Dose: 25 mg Ondansetron HCl (Zofran) 4 mg IV Q4H PRN PRN Reason: Nausea/Vomiting Last Admin: 06/02/19 20:24 Dose: 4 mg Oxybutynin Chloride (Oxybutynin) 10 mg PO BID [facility] Last Admin: 06/06/19 21:38 Dose: 10 mg Rosuvastatin Calcium (Crestor) 10 mg PO DAILY [facility] Last Admin: 06/06/19 09:37 Dose: 10 mg Discontinued Medications Acetaminophen (Tylenol) 650 mg PO ONETIME ONE Stop: 06/02/19 11:01 Last Admin: 06/02/19 10:58 Dose: 650 mg Furosemide (Lasix) 40 mg IVPUSH NOW ONE Stop: 06/02/19 12:52 Last Admin: 06/02/19 13:02 Dose: 40 mg Sodium Chloride (Normal Saline) 1,000 mls @ 250 mls/hr IV ASDIRECTED [facility] Last Admin: 06/02/19 10:58 Dose: 250 mls/hr Ceftriaxone Sodium 1 gm/ (Sodium Chloride) 100 mls @ 200 mls/hr IV ONETIME ONE Stop: 06/02/19 11:48 Last Admin: 06/02/19 11:52 Dose: 200 mls/hr Magnesium Sulfate 2 gm/ Premix 50 mls @ 25 mls/hr IV ONETIME ONE Stop: 06/02/19 14:03 Last Admin: 06/02/19 12:44 Dose: 25 mls/hr Sodium Chloride (Normal Saline) 1,000 mls @ 100 mls/hr IV ASDIRECTED [facility] Last Admin: 06/03/19 01:38 Dose: 100 mls/hr Ceftriaxone Sodium 1 gm/ (Sodium Chloride) 100 mls @ 200 mls/hr IV Q24H [facility] Last Admin: 06/03/19 11:22 Dose: 200 mls/hr Sodium Chloride (Sodium Chloride 3%) 500 mls @ 50 mls/hr IV ASDIRECTED [facility] Stop: 06/02/19 17:31 Last Admin: 06/02/19 16:34 Dose: 50 mls/hr Sodium Chloride (Normal Saline) 1,000 mls @ 50 mls/hr IV ASDIRECTED [facility] Last Admin: 06/03/19 04:29 Dose: 50 mls/hr Ferric Sodium Gluconate Complex 250 mg/ Sodium Chloride 120 mls @ 60 mls/hr IV ONETIME ONE Stop: 06/04/19 18:29 Last Admin: 06/04/19 16:27 Dose: 60 mls/hr [facility]ulin [facility]) [facility] Last Admin: 06/05/19 18:30 Dose: Not Given Insulin Glargine (Lantus) 8 unit SUBCUT BID [facility] Last Admin: 06/06/19 09:38 Dose: 8 units Insulin Glargine (Lantus) 10 unit SUBCUT ONETIME ONE Stop: 06/06/19 21:31 Last Admin: 06/06/19 21:39 Dose: 10 units Lactulose (Cephulac) 20 gm PO ONETIME ONE Stop: 06/06/19 11:23 Last Admin: 06/06/19 11:59 Dose: 20 gm Levofloxacin (Levaquin) 500 mg PO Q24H [facility] Last Admin: 06/05/19 13:14 Dose: Not Given Levofloxacin (Levaquin) 250 mg PO Q24H [facility] Ondansetron HCl (Zofran) 4 mg IVPUSH ONETIME ONE Stop: 06/02/19 10:39 Last Admin: 06/02/19 10:58 Dose: 4 mg Oxybutynin Chloride (Oxybutynin) 5 mg PO BID [facility] Last Admin: 06/06/19 09:37 Dose: 5 mg Oxybutynin Chloride (Oxybutynin Er) 5 mg PO ONETIME ONE Stop: 06/05/19 21:31 Last Admin: 06/05/19 22:00 Dose: 5 mg Oxybutynin Chloride (Oxybutynin) 5 mg PO ONETIME ONE Stop: 06/06/19 10:09 Last Admin: 06/06/19 11:00 Dose: 5 mg Psyllium Husk (Metamucil Sugar Free) 1 packet PO TIDAC [facility] Last Admin: 06/04/19 10:34 Dose: 1 packet - Exam Quality Assessment: No: Supplemental Oxygen General: Alert, Oriented, Cooperative, No Acute Distress HEENT: Pupils Equal, Pupils Reactive, EOMI, Mucous Membr. Moist/[place] Neck: Supple Lungs: Clear to Auscultation, Normal Respiratory Effort Cardiovascular: Regular Rate, Regular Rhythm GI/Abdominal Exam: Normal Bowel Sounds, Soft, Non-Tender, No Organomegaly, No Abnormal Bruit, Guarding (Female) Exam: Other (has indwelling catheter) Back Exam: Normal Inspection, Decreased Range of Motion Extremities: Normal Inspection, Normal Range of Motion, Non-Tender, No Pedal Edema, Normal Capillary Refill Peripheral Pulses: 2+: Dorsalis Pedis (L), Dorsalis Pedis (R) Skin: Warm, Dry, Intact Neurological: No New Focal Deficit Psy/Mental Status: Alert, Normal Affect, Normal Mood Sepsis Event Note - Evaluation Sepsis Screening Result: No Definite Risk - Focused Exam Vital Signs: Vital Signs Temp Pulse Resp BP Pulse Ox Pulse Ox 06/07/19 03:03 36.8 C 84 18 142/61 H 94 L 06/06/19 23:00 92 L 06/06/19 21:42 91 137/59 L 06/06/19 21:40 37.2 C 91 20 137/59 L 92 L Date Exam was Performed: 06/07/19 Time Exam was Performed: 19:19 - Problem List Review Problem List Initiated/Reviewed/Updated: Yes - My Orders Last 24 Hours: My Active Orders 06/06/19 11:25 Enema [RC] ASDIRECTED 06/06/19 21:00 Oxybutynin 10 mg PO BID 06/07/19 06:19 BMP [BASIC METABOLIC PANEL,BMP] [CHEM] DAILY CBC WITH AUTO DIFF [HEME] DAILY MAGNESIUM [CHEM] DAILY 06/07/19 09:00 Furosemide [Lasix] 20 mg PO DAILY Insulin Glarg,Human.Rec.Analog [LantUS] 10 unit SUBCUT BID 06/08/19 05:00 BMP [BASIC METABOLIC PANEL,BMP] [CHEM] DAILY CBC WITH AUTO DIFF [HEME] DAILY MAGNESIUM [CHEM] DAILY 06/09/19 05:00 BMP [BASIC METABOLIC PANEL,BMP] [CHEM] DAILY CBC WITH AUTO DIFF [HEME] DAILY MAGNESIUM [CHEM] DAILY 06/10/19 05:00 BMP [BASIC METABOLIC PANEL,BMP] [CHEM] DAILY CBC WITH AUTO DIFF [HEME] DAILY 06/11/19 05:00 BMP [BASIC METABOLIC PANEL,BMP] [CHEM] DAILY CBC WITH AUTO DIFF [HEME] DAILY - Plan Plan:: Acute urinary retention Gross hematuria likely 2/2 Hemorrhagic cystitis Hemorrhagic cystitis Bladder cancer s/p ablation + B-HCG 06/02 S/p Abdominal Pain/Bladder Spasm +/- Constipation S/p Constipation Ablation followed by beta HCG on 05/23 and discharged home --> unable to void with distended bladder--> brought to ED by family members Mal[place] catheter placed in ED with bloody urine Consulted with urology in ED who recommended prophylactic ciprofloxacin As per AUA the recommended amount of doses is 1+ negative urine culture--> Discontinued Rocephin She is at risk for UTI due to cystitis Last BM a couple of days ago PLAN - Malone catheter care - Continue Oxybutynin 10 mg po BID for bladder spasm - Urology follow up after discharge - Levaquin 750 mg q48H for Cystitis prophylaxis Multifactorial hyponatremia with decreased serum osmolality Chronic renal insufficiency, stage IV (severe) Recent cystoscopy for ablation of bladder tumors + CKD stage IV + on thiazide diuretic + was on 180oz water at home + uncontrolled hypothyroid as per family Given 3% NS in ED Also on HCTZ known to cause hyponatemia Sodium today 135 Urine sodium 19-->now 109 (normal); she is now able to concentrate PLAN - Continue Fluid restriction 1.2L - Continue holding thiazide diuretic, confirm indication - Monitor Mental status - Continue levothyroxine - Keep balance as neutral as possible Type 1 diabetes mellitus, HbA1c- 7.3% (this admission), Improving Insulin pump and CGM Patient's family dosing insulin as per home regimen No longer on insulin pump PLAN - Continue control by family and patient with carb counting - Diabetic Education to check insulin pump; not matching with our unit read per nurse - Increased Lantus to 12 units SubQ BID with Accu-check - ISS change to high dose level - PRN D50% Hypertension, fairly controlled Chronic kidney disease, stage IV, GFR 27 Iron deficiency anemia Has underlying Anemia of chronic disease At baseline as per chart review No signs of MAYE Likely worsening electrolyte disturbance No signs of active bleeding Iron deficit 1.5g; Likely has a component of Anemia of Chronic Disease with her underlying CKD Normal B12, folic acid and reticulocyte count Blood Pressure-not well controlled Hgb is now 9.1 PLAN - Monitor urine output - Renally dosed medications - Continue to hold thiazide diuretic due to Hyponatremia - Amlodipin 10 mg po Daily, Metoprolol Tartrate 25 mg po BID, Lasix 20 mg po daily, and ACEI 20 mg po daily - PRN Hydralazine 15 mg IVP Q4H for BP > 150/90 mmHg - Avoid nephrotoxic agents - Received Iron sucrose 500 mg Mild Cognitive Impairment - As per INFORMATION SECURITY ASSOCIATE eval - IZABEL for placement as per INFORMATION SECURITY ASSOCIATE's recommendations PROPHYLAXIS DVT- SCD's, no pharmacologic due to hematuria GI- not indicated CODE STATUS: full code DISPOSITION: She continues to improve clinically. LOS > 96hrs pending placement.
[2019-06-07] MEDS: Insulin Glarg,Human.Rec.Analog 100 Unit/ML SUBCUT SCH ×2 (07:39→21:04)
[2019-06-07] MEDS ORDERED: Insulin Glarg,Human.Rec.Analog 100 Unit/ML SUBCUT SCH (09:00)
[2019-06-07] MEDS: Insulin Lispro 100 Units/ML 3 ML Vial SUBCUT SCH ×4 (09:20→21:15)
[2019-06-07] MEDS: Oxybutynin 5 MG Tab PO SCH ×2 (09:22→21:04)
[2019-06-07] MEDS: Rosuvastatin 10 MG Tab PO SCH (09:23)
[2019-06-07] MEDS: amLODIPine 10 MG Tab PO SCH (09:23)
[2019-06-07] MEDS: Aspirin 81 MG Tab.Chew PO SCH (09:23)
[2019-06-07] MEDS: Furosemide 20 MG Tab PO SCH (09:24)
[2019-06-07] MEDS: Metoprolol Tartrate 25 MG Tab PO SCH ×2 (09:24→21:05)
[2019-06-07] MEDS: Levofloxacin 750 MG Tab PO SCH (11:51)
[2019-06-07] MEDS: Acetaminophen 325 MG Tab PO PRN (14:47)
[2019-06-07] MEDS ORDERED: guaiFENesin/Dextromethorphan 100-10 MG/5 ML Soln 5 ML Cup PO PRN (20:27)
[2019-06-07] MEDS ORDERED: chlordiazePOXIDE 25 MG Cap PO ONE (20:28)
[2019-06-07] MEDS ORDERED: LORazepam 2 MG/ML SDV IVPUSH PRN ×2 (20:29)
[2019-06-08] MEDS: Levothyroxine 112 MCG Tab PO SCH (06:05)
[2019-06-08] MEDS: Insulin Lispro 100 Units/ML 3 ML Vial SUBCUT SCH ×4 (06:45→21:00)
[2019-06-08] MEDS: Furosemide 20 MG Tab PO SCH (09:44)
[2019-06-08] MEDS: Aspirin 81 MG Tab.Chew PO SCH (09:44)
[2019-06-08] MEDS: Oxybutynin 5 MG Tab PO SCH ×2 (09:45→20:59)
[2019-06-08] MEDS: Rosuvastatin 10 MG Tab PO SCH (09:45)
[2019-06-08] MEDS: amLODIPine 10 MG Tab PO SCH (09:45)
[2019-06-08] MEDS: Metoprolol Tartrate 25 MG Tab PO SCH ×2 (09:46→20:59)
--- NOTE | 2019-06-08 09:55 | PCM.PN ---
- General Info Date of Service: 06/08/19 Admission Dx/Problem (Free Text): Admission Diagnosis/Problem Admission Diagnosis/Problem Nausea and vomiting in adult patient Subjective Update: No overnight or acute issues. She rested well last night and no new complaints this AM. Functional Status: Reports: Pain Controlled, Tolerating Diet, Ambulating, Urinating. Denies: New Symptoms - Review of Systems General: Denies: Fever, Weakness, Fatigue, Malaise, Chills HEENT: Reports: No Symptoms Pulmonary: Denies: Shortness of Breath Cardiovascular: Denies: Chest Pain, Dyspnea on Exertion, Lightheadedness Gastrointestinal: Denies: Abdominal Pain, Nausea, Vomiting Musculoskeletal: Reports: No Symptoms Skin: Denies: Cyanosis, Pallor, Diaphoresis, Rash Neurological: Denies: Confusion, Numbness, Weakness, Gait Disturbance Psychiatric: Denies: Anxiety, Agitation, Hallucinations Systems Review Comment:: She was sitting up on the chair smiling. States she slept pretty good last night. No acute issues or new complaints. - Patient Data Vitals - Most Recent: Last Vital Signs Temp 36.6 C 06/08/19 08:44 Pulse 83 06/08/19 09:46 Resp 16 06/08/19 08:44 BP 143/51 H 06/08/19 09:46 Pulse Ox 98 06/08/19 08:44 Weight - Most Recent: 80.014 kg I&O - Last 24 Hours: Intake & Output 06/07/19 06/08/19 06/08/19 22:59 06:59 14:59 Intake Total 780 118 Output Total 875 950 Balance -95 -832 Lab Results Last 24 Hours: Laboratory Results - last 24 hr 06/07/19 06/07/19 06/07/19 Range/Units 11:29 16:34 21:01 WBC (3.98-10.04) K/mm3 RBC (3.98-5.22) M/mm3 Hgb (11.2-15.7) gm/dl Hct (34.1-44.9) % MCV (79.4-94.8) fl MCH (25.6-32.2) pg MCHC (32.2-35.5) g/dl RDW Std Deviation (36.4-46.3) fL Plt Count (182-369) K/mm3 MPV (9.4-12.3) fl Neut % (Auto) (34.0-71.1) % Lymph % (Auto) (19.3-51.7) % [place] % (Auto) (4.7-12.5) % Eos % (Auto) (0.7-5.8) Baso % (Auto) (0.1-1.2) % Neut # (Auto) (1.56-6.13) K/mm3 Lymph # (Auto) (1.18-3.74) K/mm3 [place] # (Auto) (0.24-0.36) K/mm3 Eos # (Auto) (0.04-0.36) K/mm3 Baso # (Auto) (0.01-0.08) K/mm3 Manual Slide Review Sodium (136-145) mEq/L Potassium (3.5-5.1) mEq/L Chloride (98-107) mEq/L Carbon Dioxide (21-32) mEq/L Anion Gap (5-15) BUN (7-18) mg/dL Creatinine (0.55-1.02) mg/dL Est Cr Clr Drug Dosing mL/min Estimated GFR (MDRD) (>60) mL/min BUN/Creatinine Ratio (14-18) Glucose (83-115) mg/dL POC Glucose 303 H 155 H 254 H (83-110) mg/dL Calcium (8.5-10.1) mg/dL Magnesium (1.8-2.4) mg/dl 06/08/19 06/08/19 06/08/19 Range/Units 05:23 05:23 06:35 WBC 7.27 (3.98-10.04) K/mm3 RBC 3.52 L (3.98-5.22) M/mm3 Hgb 9.8 L (11.2-15.7) gm/dl Hct 30.1 L (34.1-44.9) % MCV 85.5 (79.4-94.8) fl MCH 27.8 (25.6-32.2) pg MCHC 32.6 (32.2-35.5) g/dl RDW Std Deviation 41.2 (36.4-46.3) fL Plt Count 308 (182-369) K/mm3 MPV 9.2 L (9.4-12.3) fl Neut % (Auto) 59.9 (34.0-71.1) % Lymph % (Auto) 16.8 L (19.3-51.7) % [place] % (Auto) 16.5 H (4.7-12.5) % Eos % (Auto) 6.2 H (0.7-5.8) Baso % (Auto) 0.3 (0.1-1.2) % Neut # (Auto) 4.36 (1.56-6.13) K/mm3 Lymph # (Auto) 1.22 (1.18-3.74) K/mm3 [place] # (Auto) 1.20 H (0.24-0.36) K/mm3 Eos # (Auto) 0.45 H (0.04-0.36) K/mm3 Baso # (Auto) 0.02 (0.01-0.08) K/mm3 Manual Slide Review Abnormal smear Sodium 139 (136-145) mEq/L Potassium 4.4 (3.5-5.1) mEq/L Chloride 103 (98-107) mEq/L Carbon Dioxide 24 (21-32) mEq/L Anion Gap 16.4 H (5-15) BUN 43 H (7-18) mg/dL Creatinine 1.8 H (0.55-1.02) mg/dL Est Cr Clr Drug Dosing 21.65 mL/min Estimated GFR (MDRD) 27 (>60) mL/min BUN/Creatinine Ratio 23.9 H (14-18) Glucose 52 L (83-115) mg/dL POC Glucose 62 L (83-110) mg/dL Calcium 8.6 (8.5-10.1) mg/dL Magnesium 1.9 (1.8-2.4) mg/dl 06/08/19 Range/Units 07:10 WBC (3.98-10.04) K/mm3 RBC (3.98-5.22) M/mm3 Hgb (11.2-15.7) gm/dl Hct (34.1-44.9) % MCV (79.4-94.8) fl MCH (25.6-32.2) pg MCHC (32.2-35.5) g/dl RDW Std Deviation (36.4-46.3) fL Plt Count (182-369) K/mm3 MPV (9.4-12.3) fl Neut % (Auto) (34.0-71.1) % Lymph % (Auto) (19.3-51.7) % [place] % (Auto) (4.7-12.5) % Eos % (Auto) (0.7-5.8) Baso % (Auto) (0.1-1.2) % Neut # (Auto) (1.56-6.13) K/mm3 Lymph # (Auto) (1.18-3.74) K/mm3 [place] # (Auto) (0.24-0.36) K/mm3 Eos # (Auto) (0.04-0.36) K/mm3 Baso # (Auto) (0.01-0.08) K/mm3 Manual Slide Review Sodium (136-145) mEq/L Potassium (3.5-5.1) mEq/L Chloride (98-107) mEq/L Carbon Dioxide (21-32) mEq/L Anion Gap (5-15) BUN (7-18) mg/dL Creatinine (0.55-1.02) mg/dL Est Cr Clr Drug Dosing mL/min Estimated GFR (MDRD) (>60) mL/min BUN/Creatinine Ratio (14-18) Glucose (83-115) mg/dL POC Glucose 112 H (83-110) mg/dL Calcium (8.5-10.1) mg/dL Magnesium (1.8-2.4) mg/dl [place] Results Last 24 Hours: Microbiology 06/02/19 12:04 Aerobic Blood Culture - Preliminary Blood - Venous - Lab Draw NO GROWTH AFTER 5 DAYS Anaerobic Blood Culture - Final 06/02/19 11:48 Aerobic Blood Culture - Preliminary Blood - Venous NO GROWTH AFTER 5 DAYS Anaerobic Blood Culture - Preliminary NO GROWTH AFTER 5 DAYS Med Orders - Current: Current Medications Acetaminophen (Tylenol) 650 mg PO Q4H PRN PRN Reason: Pain (Mild 1-3)/fever Last Admin: 06/07/19 14:47 Dose: 650 mg Hydrocodone Bitart/Acetaminophen ([place] 325-5 Mg) 1 tab PO Q4H PRN PRN Reason: Pain Amlodipine Besylate (Norvasc) 10 mg PO DAILY [facility] Last Admin: 06/08/19 09:45 Dose: 10 mg Aspirin (Aspirin) 81 mg PO DAILY [facility] Last Admin: 06/08/19 09:44 Dose: 81 mg Benazepril HCl (Lotensin) 20 mg PO DAILY [facility] Last Admin: 06/08/19 09:45 Dose: 20 mg Dextrose/Water (Dextrose 50% In Water) 50 ml IVPUSH ASDIRECTED PRN PRN Reason: Blood Glucose Furosemide (Lasix) 20 mg PO DAILY [facility] Last Admin: 06/08/19 09:44 Dose: 20 mg Guaifenesin/Phenylephrine HCl (Robitussin Dm) 10 ml PO Q4H PRN PRN Reason: Congestion Hydralazine HCl (Apresoline) 15 mg IVPUSH Q4H PRN PRN Reason: Hypertension Hydromorphone HCl (Dilaudid) 0.5 mg IVPUSH Q4H PRN PRN Reason: Pain Last Admin: 06/05/19 21:31 Dose: 0.5 mg Insulin Glargine (Lantus) 12 unit SUBCUT BID [facility] Last Admin: 06/07/19 21:04 Dose: 12 units Insulin Human Lispro (Humalog) 0 unit SUBCUT QIDACANDBED [facility]; Protocol Last Admin: 06/08/19 06:45 Dose: Not Given Levofloxacin (Levaquin) 750 mg PO Q48H [facility] Last Admin: 06/07/19 11:51 Dose: 750 mg Levothyroxine Sodium (Levothyroxine) 112 mcg PO ACBREAKFAST [facility] Last Admin: 06/08/19 06:05 Dose: 112 mcg Metoprolol Tartrate (Lopressor) 25 mg PO BID [facility] Last Admin: 06/08/19 09:46 Dose: 25 mg Ondansetron HCl (Zofran) 4 mg IV Q4H PRN PRN Reason: Nausea/Vomiting Last Admin: 06/02/19 20:24 Dose: 4 mg Oxybutynin Chloride (Oxybutynin) 10 mg PO BID [facility] Last Admin: 06/08/19 09:45 Dose: 10 mg Rosuvastatin Calcium (Crestor) 10 mg PO DAILY [facility] Last Admin: 06/08/19 09:45 Dose: 10 mg Discontinued Medications Acetaminophen (Tylenol) 650 mg PO ONETIME ONE Stop: 06/02/19 11:01 Last Admin: 06/02/19 10:58 Dose: 650 mg Chlordiazepoxide HCl (Librium) 50 mg PO ONETIME ONE Stop: 06/07/19 20:29 Last Admin: 06/07/19 21:04 Dose: 50 mg Furosemide (Lasix) 40 mg IVPUSH NOW ONE Stop: 06/02/19 12:52 Last Admin: 06/02/19 13:02 Dose: 40 mg Sodium Chloride (Normal Saline) 1,000 mls @ 250 mls/hr IV ASDIRECTED [facility] Last Admin: 06/02/19 10:58 Dose: 250 mls/hr Ceftriaxone Sodium 1 gm/ (Sodium Chloride) 100 mls @ 200 mls/hr IV ONETIME ONE Stop: 06/02/19 11:48 Last Admin: 06/02/19 11:52 Dose: 200 mls/hr Magnesium Sulfate 2 gm/ Premix 50 mls @ 25 mls/hr IV ONETIME ONE Stop: 06/02/19 14:03 Last Admin: 06/02/19 12:44 Dose: 25 mls/hr Sodium Chloride (Normal Saline) 1,000 mls @ 100 mls/hr IV ASDIRECTED [facility] Last Admin: 06/03/19 01:38 Dose: 100 mls/hr Ceftriaxone Sodium 1 gm/ (Sodium Chloride) 100 mls @ 200 mls/hr IV Q24H [facility] Last Admin: 06/03/19 11:22 Dose: 200 mls/hr Sodium Chloride (Sodium Chloride 3%) 500 mls @ 50 mls/hr IV ASDIRECTED [facility] Stop: 06/02/19 17:31 Last Admin: 06/02/19 16:34 Dose: 50 mls/hr Sodium Chloride (Normal Saline) 1,000 mls [facility] Last Admin: 06/03/19 04:29 Dose: 50 mls/hr Ferric Sodium Gluconate Complex 250 mg/ Sodium Chloride 120 mls @ 60 mls/hr IV ONETIME ONE Stop: 06/04/19 18:29 Last Admin: 06/04/19 16:27 Dose: 60 mls/hr [facility]ulin [facility]) [facility] Last Admin: 06/05/19 18:30 Dose: Not Given Insulin Glargine (Lantus) 8 unit SUBCUT BID [facility] Last Admin: 06/07/19 07:39 Dose: Not Given Insulin Glargine (Lantus) 10 unit SUBCUT BID [facility] Last Admin: 06/07/19 09:24 Dose: 10 unit Insulin Glargine (Lantus) 10 unit SUBCUT ONETIME ONE Stop: 06/06/19 21:31 Last Admin: 06/06/19 21:39 Dose: 10 units Lactulose (Cephulac) 20 gm PO ONETIME ONE Stop: 06/06/19 11:23 Last Admin: 06/06/19 11:59 Dose: 20 gm Levofloxacin (Levaquin) 500 mg PO Q24H [facility] Last Admin: 06/05/19 13:14 Dose: Not Given Levofloxacin (Levaquin) 250 mg PO Q24H [facility] Lorazepam (Ativan) 0 mg IVPUSH Q4H PRN; Protocol PRN Reason: Withdrawal Symptoms Lorazepam (Ativan) 2 mg IVPUSH Q4H PRN PRN Reason: Seizures Ondansetron HCl (Zofran) 4 mg IVPUSH ONETIME ONE Stop: 06/02/19 10:39 Last Admin: 06/02/19 10:58 Dose: 4 mg Oxybutynin Chloride (Oxybutynin) 5 mg PO BID [facility] Last Admin: 06/06/19 09:37 Dose: 5 mg Oxybutynin Chloride (Oxybutynin Er) 5 mg PO ONETIME ONE Stop: 06/05/19 21:31 Last Admin: 06/05/19 22:00 Dose: 5 mg Oxybutynin Chloride (Oxybutynin) 5 mg PO ONETIME ONE Stop: 06/06/19 10:09 Last Admin: 06/06/19 11:00 Dose: 5 mg Psyllium Husk (Metamucil Sugar Free) 1 packet PO TIDAC [facility] Last Admin: 06/04/19 10:34 Dose: 1 packet - Exam Quality Assessment: No: Supplemental Oxygen General: Alert, Oriented, Cooperative, No Acute Distress HEENT: Pupils Equal, Pupils Reactive, EOMI, Mucous Membr. Moist/[place] Neck: Supple Lungs: Clear to Auscultation, Normal Respiratory Effort Cardiovascular: Regular Rate, Regular Rhythm GI/Abdominal Exam: Normal Bowel Sounds, Soft, Non-Tender, No Organomegaly, No Distention, No Abnormal Bruit (Female) Exam: Deferred Back Exam: Normal Inspection, Decreased Range of Motion Extremities: Normal Inspection, Normal Range of Motion, Non-Tender, No Pedal Edema, Normal Capillary Refill Peripheral Pulses: 2+: Dorsalis Pedis (L), Dorsalis Pedis (R) Skin: Warm, Dry, Intact Neurological: No New Focal Deficit Psy/Mental Status: Alert, Normal Affect, Normal Mood Sepsis Event Note - Evaluation Sepsis Screening Result: No Definite Risk - Focused Exam Vital Signs: Vital Signs Temp Pulse Resp BP Pulse Ox Pulse Ox 06/08/19 09:46 83 143/51 H 06/08/19 09:45 143/51 H 06/08/19 08:44 36.6 C 87 16 137/52 L 98 06/08/19 04:22 36.9 C 81 17 125/49 L 94 L 06/07/19 23:00 95 Date Exam was Performed: 06/09/19 Time Exam was Performed: 16:44 - Problem List Review Problem List Initiated/Reviewed/Updated: Yes - My Orders Last 24 Hours: My Active Orders 06/07/19 09:00 Furosemide [Lasix] 20 mg PO DAILY 06/07/19 20:27 Incentive Spirometry [RT Incentive Spirometry] [RC] ASDIRECTED Dextromethorphan/guaiFENesin [Robitussin DM] 10 ml PO Q4H PRN 06/07/19 21:00 Insulin Glarg,Human.Rec.Analog [LantUS] 12 unit SUBCUT BID 06/09/19 05:00 BMP [BASIC METABOLIC PANEL,BMP] [CHEM] DAILY CBC WITH AUTO DIFF [HEME] DAILY MAGNESIUM [CHEM] DAILY 06/10/19 05:00 BMP [BASIC METABOLIC PANEL,BMP] [CHEM] DAILY CBC WITH AUTO DIFF [HEME] DAILY 06/11/19 05:00 BMP [BASIC METABOLIC PANEL,BMP] [CHEM] DAILY CBC WITH AUTO DIFF [HEME] DAILY - Plan Plan:: Acute urinary retention Gross hematuria likely 2/2 Hemorrhagic cystitis Hemorrhagic cystitis Bladder cancer s/p ablation + B-HCG 06/02 S/p Abdominal Pain/Bladder Spasm +/- Constipation S/p Constipation Ablation followed by beta HCG on 05/23 and discharged home --> unable to void with distended bladder--> brought to ED by family members Malone catheter placed in ED with bloody urine Consulted with urology in ED who recommended prophylactic ciprofloxacin As per AUA the recommended amount of doses is 1+ negative urine culture--> Discontinued Rocephin She is at risk for UTI due to cystitis Last BM a couple of days ago PLAN - Malone catheter care - Continue Oxybutynin 10 mg po BID for bladder spasm - Urology follow up after discharge - Levaquin 750 mg q48H for Cystitis prophylaxis Multifactorial hyponatremia with decreased serum osmolality Chronic renal insufficiency, stage IV (severe) Recent cystoscopy for ablation of bladder tumors + CKD stage IV + on thiazide diuretic + was on 180oz water at home + uncontrolled hypothyroid as per family Given 3% NS in ED Also on HCTZ known to cause hyponatremia Sodium today 139 Urine sodium 19-->now 109 (normal); she is now able to concentrate PLAN - Will lift daily fluid and salt restrictions - Will discontinue thiazide diuretic - Continue levothyroxine - Keep balance as neutral as possible Type 1 diabetes mellitus, HbA1c- 7.3% (this admission), Improving Insulin pump and CGM Patient's family dosing insulin as per home regimen No longer on insulin pump Had an episode where she dropped in the 60s but asymptomatic PLAN - Continue control by family and patient with carb counting - Diabetic Education to check insulin pump; not matching with our unit read per nurse - Continue Lantus to 12 units SubQ BID with Accu-check - ISS change to low dose level now - Nurse to let me know how much she eats in the evening prior to insulin administration - PRN D50% for hypoglycemia Hypertension, fairly controlled Chronic kidney disease, stage IV, GFR 27 Iron deficiency anemia Has underlying Anemia of chronic disease At baseline as per chart review No signs of MAYE Likely worsening electrolyte disturbance No signs of active bleeding Iron deficit 1.5g; Likely has a component of Anemia of Chronic Disease with her underlying CKD Normal B12, folic acid and reticulocyte count Blood Pressure-not well controlled Hgb is now 9.1 PLAN - Monitor urine output - Renally dosed medications - Continue to hold thiazide diuretic due to Hyponatremia - Amlodipin 10 mg po Daily, Metoprolol Tartrate 25 mg po BID, Lasix 20 mg po daily, and ACEI 20 mg po daily - PRN Hydralazine 15 mg IVP Q4H for BP > 150/90 mmHg - Avoid nephrotoxic agents - Received Iron sucrose 500 mg Mild Cognitive Impairment - As per MICROFILM MACHINE OPERATOR eval - IZABEL for placement as per MICROFILM MACHINE OPERATOR's recommendations PROPHYLAXIS DVT- SCD's, no pharmacologic due to hematuria GI- not indicated CODE STATUS: full code DISPOSITION: She continues to improve clinically. LOS > 96hrs pending placement to [facility]
[2019-06-08] MEDS: Insulin Glarg,Human.Rec.Analog 100 Unit/ML SUBCUT SCH ×2 (10:56→20:59)
[2019-06-08] MEDS ORDERED: Polyethylene Glycol 3350 Powder 17 GM Packet PO PRN (20:06)
[2019-06-09] MEDS: Levothyroxine 112 MCG Tab PO SCH (06:31)
[2019-06-09] MEDS: Insulin Lispro 100 Units/ML 3 ML Vial SUBCUT SCH ×2 (09:19→11:56)
[2019-06-09] MEDS: amLODIPine 10 MG Tab PO SCH (09:20)
[2019-06-09] MEDS: Oxybutynin 5 MG Tab PO SCH (09:20)
[2019-06-09] MEDS: Aspirin 81 MG Tab.Chew PO SCH (09:20)
[2019-06-09] MEDS: Insulin Glarg,Human.Rec.Analog 100 Unit/ML SUBCUT SCH (09:21)
[2019-06-09] MEDS: Furosemide 20 MG Tab PO SCH (09:21)
[2019-06-09] MEDS: Metoprolol Tartrate 25 MG Tab PO SCH (09:21)
[2019-06-09] MEDS: Rosuvastatin 10 MG Tab PO SCH (09:21)
--- NOTE | 2019-06-09 10:31 | PCM.DCSUM1 ---
Discharge Summary - Hospital Course Brief History: 78-year-old female with history of bladder cancer diagnosed 6 months ago had cystoscopy with cauterization in preparation for BCG treatments yesterday in [place]. Apparently the tumor also has caused some obstruction of the kidneys. She does have stage IV renal insufficiency patient was seen initially early this morning by Dr. Martinez secondary to inability to void. Lacey catheter was placed and family noted occasional blood clots in the drainage tube and collection bag. Patient then re-presented to the emergency room this morning with sinus tachycardia with a pulse of 104 and elevated blood pressure at 181/63. Patient family stated that she started vomiting after the procedure in [place] and vomited throughout the night and even in the emergency room this afternoon. She developed a fever of 37.9 Celsius. Family states that she has had some increasing confusion over the last few weeks that does seem to be worse over the last few days. UA done earlier this morning did show 5-10 WBCs and too numerous to count red blood cells. Urology was consulted and they recommended Cipro 500 mg once daily. Also of note her serum sodium this morning was 119 and when she returned to the emergency room it was 114. She is an insulin-dependent diabetic and her corrected sodium was 117. Patient was started on 250 mL of normal saline per hour and 4 hours later her corrected sodium was 119. Serum osmolality was 262, urine osmolality 365, random urine sodium 16, proBNP of 2220. Chest x-ray was consistent with vascular congestion consistent with heart failure. Patient is also on thiazide diuretic. BUN was 44 with a creatinine of 1.9 and estimated GFR of 26. She was given Rocephin 1 g, magnesium 2 g, acetaminophen 650 mg, Zofran 4 mg IV push , furosemide 40 mg IV push, and started on normal saline 250 mL/h and she received 1 L prior to admission. Diagnosis: Stroke: No Modified Paloma Scale: No Symptoms at All Modified D[place]che[place] Scale Score: 0 - Discharge Data Discharge Date: 06/09/19 Discharge Disposition: DC/Tfer to [facility] Condition: Good - Referral to Home Health Primary Care Physician: Glenys Vail MD - Patient Summary/Data Operative Procedure(s) Performed: None Complications: None Consults: Consultations 06/03/19 10:46 OT Evaluation and Treatment [CONS] Routine PT Evaluation and Treatment [CONS] Routine 06/04/19 11:46 Consult to Diabetic Nurse Specialist [CONS] Routine 06/04/19 15:59 Consult to Speech Language Pathology [[employer] Evaluation and Treatment] [CONS] Routine Recommended Follow-up Testing/Procedures: Urology follow up Planned Operative Procedure(s) after DC: None Hospital Course: Patient received treatment with oxybutynin, intravenous quinolone along with indwelling lacey catheter to relieve her hemorrhagic cystitis and acute retention and she slowly improved on this regimen. As for her anemia, she had infusion of iron and her Hgb level went up near her baseline admission level of 10 grams. Her hospital course was prolonged due to significant hyponatremia, hyperglycemia and uncontrolled hypertension. However with appropriate treatment , she responded well to treatment. Patient is now stable for discharge. Her discharge medication list have been tweaked properly. She was advised to follow up with her PCP in 1 week and urology as scheduled. Patient will be released to rehab facility as soon as her son arrives to pick her up. - Patient Instructions Diet: Heart Healthy Diet, Usual Diet as Tolerated, Low Sodium Activity: As Tolerated Driving: Do Not Drive Showering/Bathing: May Shower Notify Provider of: Fever, Increased Pain, Swelling and Redness, Drainage, Nausea and/or Vomiting - Discharge Plan *PRESCRIPTION DRUG MONITORING PROGRAM REVIEWED*: Not Applicable *COPY OF PRESCRIPTION DRUG MONITORING REPORT IN PATIENT KRYSTAL: Not Applicable Prescriptions/Med Rec: Acetaminophen [Tylenol] 650 mg PO Q4H PRN #30 tablet PRN Reason: Pain/Fever Furosemide [Lasix] 20 mg PO DAILY #30 tablet Insulin Glarg,Human.Rec.Analog [Lantus] 12 unit SUBCUT BID #1 ml Insulin Lispro [HumaLOG] See Protocol SUBCUT QIDACANDBED PRN #1 vial PRN Reason: Hyperglycemia Oxybutynin 5 mg PO BID #60 tablet Home Medications: Home Meds Aspirin 81 mg PO DAILY 01/15/19 [History] Calcium Carbonate [Calcium] 600 mg PO DAILY 01/15/19 [History] Cholecalciferol (Vitamin D3) [Vitamin D3] 2,000 mg PO DAILY 01/15/19 [History] Levothyroxine 112 mcg PO DAILY 01/15/19 [History] Multivitamin [Multivitamins] 1 tab PO DAILY 01/15/19 [History] Vitamin B Complex 1 tab PO DAILY 01/15/19 [History] amLODIPine Besylate/Benazepril [Amlodipine-Benazepril 10-20 MG] 1 tab PO DAILY 01/15/19 [History] Ciprofloxacin [Ciprofloxacin HCl] 500 mg PO DAILY 06/02/19 [History] Ferrous Sulfate [Iron] 325 mg PO DAILY 06/02/19 [History] LORazepam [Ativan] 1 mg PO PRN 06/02/19 [History] Linaclotide [Linzess] 145 mcg PO DAILY 06/02/19 [History] Lubiprostone [Amitiza] 24 mg PO BID PRN 06/02/19 [History] Phenazopyridine [Urinary Pain Relief] 97.5 mg PO TID 06/02/19 [History] Rosuvastatin [Crestor] 10 mg PO DAILY 06/02/19 [History] Acetaminophen [Tylenol] 650 mg PO Q4H PRN #30 tablet 06/09/19 [Rx] Furosemide [Lasix] 20 mg PO DAILY #30 tablet 06/09/19 [Rx] Insulin Glarg,Human.Rec.Analog [Lantus] 12 unit SUBCUT BID #1 ml 06/09/19 [Rx] Insulin Lispro [HumaLOG] See Protocol SUBCUT QIDACANDBED PRN #1 vial 06/09/19 [ Rx] Metoprolol Tartrate 25 mg PO BID #0 06/09/19 [Rx] Oxybutynin 5 mg PO BID #60 tablet 06/09/19 [Rx] Oxygen Therapy Mode: Room Air Patient Handouts: Bladder Cancer, Preventing Iron Deficiency Anemia, Adult, Hyponatremia, Urinary Tract Infection, Adult, [id number], Type 1 Diabetes Mellitus, Self Care, Adult, Hypertension, [id number], Chronic Kidney Disease, Adult, [id number], Acute Urinary Retention, Female, [id number], Hematuria, Adult Referrals: Glenys Vail MD [Primary Care Provider] - 06/19/19 9:30 am (Please follow up with Dr. Vail on Saturday at 0930am. Obtain a referral to an electro mechanic for insulin pump management.) - Discharge Summary/Plan Comment DC Time >30 min.: Yes (45 mins) Discharge Summary/Plan Comment: Discharge to Rehab - General Info Date of Service: 06/09/19 Admission Dx/Problem (Free Text: Admission Diagnosis/Problem Admission Diagnosis/Problem Nausea and vomiting in adult patient Subjective Update: No overnight or acute issues. She rested well last night and no new complaints this AM. Functional Status: Reports: Pain Controlled, Tolerating Diet, Ambulating, Urinating. Denies: New Symptoms - Review of Systems General: Reports: Weakness. Denies: Fever, Chills HEENT: Reports: Headaches Pulmonary: Denies: Shortness of Breath Cardiovascular: Denies: Chest Pain, Dyspnea on Exertion, Other Gastrointestinal: Denies: Abdominal Pain, Nausea, Vomiting Genitourinary: Reports: No Symptoms Musculoskeletal: Reports: No Symptoms Skin: Denies: Cyanosis, Pallor, Rash Neurological: Reports: Difficulty Walking, Gait Disturbance Psychiatric: Denies: Depression, Anxiety, Agitation Systems Review Comment: No overnight or acute issues - Patient Data Vitals - Most Recent: Last Vital Signs Temp 36.7 C 06/09/19 03:21 Pulse 77 06/09/19 09:21 Resp 16 06/09/19 03:21 BP 124/77 06/09/19 09:21 Pulse Ox 94 L 06/09/19 03:21 Weight - Most Recent: 79.152 kg I&O - Last 24 hours: Intake & Output 06/08/19 06/09/19 06/09/19 22:59 06:59 14:59 Intake Total 1420 450 Output Total 650 1425 Balance 770 -975 Lab Results - Last 24 hrs: Laboratory Results - last 24 hr 06/08/19 06/08/19 06/08/19 Range/Units 11:18 16:23 20:58 WBC (3.98-10.04) K/mm3 RBC (3.98-5.22) M/mm3 Hgb (11.2-15.7) gm/dl Hct (34.1-44.9) % MCV (79.4-94.8) fl MCH (25.6-32.2) pg MCHC (32.2-35.5) g/dl RDW Std Deviation (36.4-46.3) fL Plt Count (182-369) K/mm3 MPV (9.4-12.3) fl Neut % (Auto) (34.0-71.1) % Lymph % (Auto) (19.3-51.7) % Ramsey % (Auto) (4.7-12.5) % Eos % (Auto) (0.7-5.8) Baso % (Auto) (0.1-1.2) % Neut # (Auto) (1.56-6.13) K/mm3 Lymph # (Auto) (1.18-3.74) K/mm3 Ramsey # (Auto) (0.24-0.36) K/mm3 Eos # (Auto) (0.04-0.36) K/mm3 Baso # (Auto) (0.01-0.08) K/mm3 Manual Slide Review Sodium (136-145) mEq/L Potassium (3.5-5.1) mEq/L Chloride (98-107) mEq/L Carbon Dioxide (21-32) mEq/L Anion Gap (5-15) BUN (7-18) mg/dL Creatinine (0.55-1.02) mg/dL Est Cr Clr Drug Dosing mL/min Estimated GFR (MDRD) (>60) mL/min BUN/Creatinine Ratio (14-18) Glucose (83-115) mg/dL POC Glucose 282 H 283 H 340 H (83-110) mg/dL Calcium (8.5-10.1) mg/dL Magnesium (1.8-2.4) mg/dl 06/09/19 06/09/19 06/09/19 Range/Units 06:05 06:15 06:15 WBC 8.68 (3.98-10.04) K/mm3 RBC 3.75 L (3.98-5.22) M/mm3 Hgb 10.4 L (11.2-15.7) gm/dl Hct 31.9 L (34.1-44.9) % MCV 85.1 (79.4-94.8) fl MCH 27.7 (25.6-32.2) pg MCHC 32.6 (32.2-35.5) g/dl RDW Std Deviation 40.7 (36.4-46.3) fL Plt Count 319 (182-369) K/mm3 MPV 9.0 L (9.4-12.3) fl Neut % (Auto) 63.1 (34.0-71.1) % Lymph % (Auto) 16.5 L (19.3-51.7) % Ramsey % (Auto) 13.1 H (4.7-12.5) % Eos % (Auto) 6.8 H (0.7-5.8) Baso % (Auto) 0.3 (0.1-1.2) % Neut # (Auto) 5.47 (1.56-6.13) K/mm3 Lymph # (Auto) 1.43 (1.18-3.74) K/mm3 Ramsey # (Auto) 1.14 H (0.24-0.36) K/mm3 Eos # (Auto) 0.59 H (0.04-0.36) K/mm3 Baso # (Auto) 0.03 (0.01-0.08) K/mm3 Manual Slide Review Sodium 134 L (136-145) mEq/L Potassium 4.6 (3.5-5.1) mEq/L Chloride 101 (98-107) mEq/L Carbon Dioxide 24 (21-32) mEq/L Anion Gap 13.6 (5-15) BUN 47 H (7-18) mg/dL Creatinine 1.7 H (0.55-1.02) mg/dL Est Cr Clr Drug Dosing 22.92 mL/min Estimated GFR (MDRD) 29 (>60) mL/min BUN/Creatinine Ratio 27.6 H (14-18) Glucose 122 H (83-115) mg/dL POC Glucose 133 H (83-110) mg/dL Calcium 8.9 (8.5-10.1) mg/dL Magnesium 2.1 (1.8-2.4) mg/dl MARK Results - Last 24 hrs: Microbiology 06/08/19 21:30 Group A Streptococcus Rapid Screen - Final Throat NEGATIVE STREP A SCREEN REFERENCE RANGE: NEGATIVE 06/02/19 12:04 Aerobic Blood Culture - Preliminary Blood - Venous - Lab Draw NO GROWTH AFTER 6 DAYS Anaerobic Blood Culture - Final 06/02/19 11:48 Aerobic Blood Culture - Preliminary Blood - Venous NO GROWTH AFTER 6 DAYS Anaerobic Blood Culture - Preliminary NO GROWTH AFTER 6 DAYS Med Orders - Current: Current Medications Acetaminophen (Tylenol) 650 mg PO Q4H PRN PRN Reason: Pain (Mild 1-3)/fever Last Admin: 06/07/19 14:47 Dose: 650 mg Hydrocodone Bitart/Acetaminophen ([place] 325-5 Mg) 1 tab PO Q4H PRN PRN Reason: Pain Amlodipine Besylate (Norvasc) 10 mg PO DAILY [facility] Last Admin: 06/09/19 09:20 Dose: 10 mg Aspirin (Aspirin) 81 mg PO DAILY [facility] Last Admin: 06/09/19 09:20 Dose: 81 mg Benazepril HCl (Lotensin) 20 mg PO DAILY [facility] Last Admin: 06/09/19 09:20 Dose: 20 mg Dextrose/Water (Dextrose 50% In Water) 50 ml IVPUSH ASDIRECTED PRN PRN Reason: Blood Glucose Furosemide (Lasix) 20 mg PO DAILY [facility] Last Admin: 06/09/19 09:21 Dose: 20 mg Guaifenesin/Phenylephrine HCl (Robitussin Dm) 10 ml PO Q4H PRN PRN Reason: Congestion Hydralazine HCl (Apresoline) 15 mg IVPUSH Q4H PRN PRN Reason: Hypertension Hydromorphone HCl (Dilaudid) 0.5 mg IVPUSH Q4H PRN PRN Reason: Pain Last Admin: 06/05/19 21:31 Dose: 0.5 mg Insulin Glargine (Lantus) 12 unit SUBCUT BID [facility] Last Admin: 06/09/19 09:21 Dose: 12 units Insulin Human Lispro (Humalog) 0 unit SUBCUT QIDACANDBED [facility]; Protocol Last Admin: 06/09/19 09:19 Dose: Not Given Levofloxacin (Levaquin) 750 mg PO Q48H [facility] Last Admin: 06/07/19 11:51 Dose: 750 mg Levothyroxine Sodium (Levothyroxine) 112 mcg PO ACBREAKFAST [facility] Last Admin: 06/09/19 06:31 Dose: 112 mcg Metoprolol Tartrate (Lopressor) 25 mg PO BID [facility] Last Admin: 06/09/19 09:21 Dose: 25 mg Ondansetron HCl (Zofran) 4 mg IV Q4H PRN PRN Reason: Nausea/Vomiting Last Admin: 06/02/19 20:24 Dose: 4 mg Oxybutynin Chloride (Oxybutynin) 10 mg PO BID [facility] Last Admin: 06/09/19 09:20 Dose: 10 mg Polyethylene Glycol (Miralax) 17 gm PO TID PRN PRN Reason: Constipation Last Admin: 06/08/19 20:58 Dose: 17 gm Rosuvastatin Calcium (Crestor) 10 mg PO DAILY [facility] Last Admin: 06/09/19 09:21 Dose: 10 mg Discontinued Medications Acetaminophen (Tylenol) 650 mg PO ONETIME ONE Stop: 06/02/19 11:01 Last Admin: 06/02/19 10:58 Dose: 650 mg Chlordiazepoxide HCl (Librium) 50 mg PO ONETIME ONE Stop: 06/07/19 20:29 Last Admin: 06/07/19 21:04 Dose: 50 mg Furosemide (Lasix) 40 mg IVPUSH NOW ONE Stop: 06/02/19 12:52 Last Admin: 06/02/19 13:02 Dose: 40 mg Sodium Chloride (Normal Saline) 1,000 mls @ 250 mls/hr IV ASDIRECTED [facility] Last Admin: 06/02/19 10:58 Dose: 250 mls/hr Ceftriaxone Sodium 1 gm/ (Sodium Chloride) 100 mls @ 200 mls/hr IV ONETIME ONE Stop: 06/02/19 11:48 Last Admin: 06/02/19 11:52 Dose: 200 mls/hr Magnesium Sulfate 2 gm/ Premix 50 mls @ 25 mls/hr IV ONETIME ONE Stop: 06/02/19 14:03 Last Admin: 06/02/19 12:44 Dose: 25 mls/hr Sodium Chloride (Normal Saline) 1,000 mls @ 100 mls/hr IV ASDIRECTED [facility] Last Admin: 06/03/19 01:38 Dose: 100 mls/hr Ceftriaxone Sodium 1 gm/ (Sodium Chloride) 100 mls @ 200 mls/hr IV Q24H [facility] Last Admin: 06/03/19 11:22 Dose: 200 mls/hr Sodium Chloride (Sodium Chloride 3%) 500 mls @ 50 mls/hr IV ASDIRECTED [facility] Stop: 06/02/19 17:31 Last Admin: 06/02/19 16:34 Dose: 50 mls/hr Sodium Chloride (Normal Saline) 1,000 mls @ 50 mls/hr IV ASDIRECTED [facility] Last Admin: 06/03/19 04:29 Dose: 50 mls/hr Ferric Sodium Gluconate Complex 250 mg/ Sodium Chloride 120 mls @ 60 mls/hr IV ONETIME ONE Stop: 06/04/19 18:29 Last Admin: 06/04/19 16:27 Dose: 60 mls/hr Insulin Glargine (Lantus) 8 unit SUBCUT BIDAC [facility] Last Admin: 06/05/19 18:30 Dose: Not Given Insulin Glargine (Lantus) 8 unit SUBCUT BID [facility] Last Admin: 06/07/19 07:39 Dose: Not Given Insulin Glargine (Lantus) 10 unit SUBCUT BID [facility] Last Admin: 06/07/19 09:24 Dose: 10 unit Insulin Glargine (Lantus) 10 unit SUBCUT ONETIME ONE Stop: 06/06/19 21:31 Last Admin: 06/06/19 21:39 Dose: 10 units Lactulose (Cephulac) 20 gm PO ONETIME ONE Stop: 06/06/19 11:23 Last Admin: 06/06/19 11:59 Dose: 20 gm Levofloxacin (Levaquin) 500 mg PO Q24H [facility] Last Admin: 06/05/19 13:14 Dose: Not Given Levofloxacin (Levaquin) 250 mg PO Q24H [facility] Lorazepam (Ativan) 0 mg IVPUSH Q4H PRN; Protocol PRN Reason: Withdrawal Symptoms Lorazepam (Ativan) 2 mg IVPUSH Q4H PRN PRN Reason: Seizures Ondansetron HCl (Zofran) 4 mg IVPUSH ONETIME ONE Stop: 06/02/19 10:39 Last Admin: 06/02/19 10:58 Dose: 4 mg Oxybutynin Chloride (Oxybutynin) 5 mg PO BID [facility] Last Admin: 06/06/19 09:37 Dose: 5 mg Oxybutynin Chloride (Oxybutynin Er) 5 mg PO ONETIME ONE Stop: 06/05/19 21:31 Last Admin: 06/05/19 22:00 Dose: 5 mg Oxybutynin Chloride (Oxybutynin) 5 mg PO ONETIME ONE Stop: 06/06/19 10:09 Last Admin: 06/06/19 11:00 Dose: 5 mg Psyllium Husk (Metamucil Sugar Free) 1 packet PO TIDAC [facility] Last Admin: 06/04/19 10:34 Dose: 1 packet - Exam General: Reports: Alert, Cooperative, No Acute Distress HEENT: Reports: Pupils Equal, Pupils Reactive, EOMI, Mucous Membr. Moist/Ord Neck: Reports: Supple, Trachea Midline Lungs: Reports: Normal Respiratory Effort, Decreased Breath Sounds Cardiovascular: Reports: Regular Rate, Regular Rhythm GI/Abdominal Exam: Normal Bowel Sounds, Soft, Non-Tender, No Organomegaly, No Distention, No Abnormal Bruit, No Mass (Female) Exam: Deferred, Other (indwelling lacey catheter) Rectal (Female) Exam: Deferred Back Exam: Reports: Normal Inspection, Decreased Range of Motion Extremities: Normal Inspection, Normal Range of Motion, Non-Tender, No Pedal Edema, Normal Capillary Refill Skin: Reports: Warm, Dry, Intact Neurological: Reports: No New Focal Deficit. Denies: Normal Gait Psy/Mental Status: Reports: Alert, Normal Affect, Normal Mood
[2019-06-09] MEDS: Levofloxacin 750 MG Tab PO SCH (11:33)
[2019-06-09] MEDS ORDERED: Bisacodyl 10 MG Supp RECTAL ONE (11:35)
[2019-06-09] MEDS ORDERED: Insulin Lispro 100 Units/ML 3 ML Vial SUBCUT ONE (13:59)
--- NOTE | 2019-07-02 14:59 | PCM.PN ---
- General Info Date of Service: 06/06/19 Admission Dx/Problem (Free Text): Admission Diagnosis/Problem Admission Diagnosis/Problem Nausea and vomiting in adult patient Subjective Update: Follow up Functional Status: Reports: Pain Controlled - Review of Systems General: Denies: Fever, Chills Pulmonary: Denies: Shortness of Breath Cardiovascular: Denies: Chest Pain Gastrointestinal: Denies: Abdominal Pain, Nausea, Vomiting Musculoskeletal: Reports: No Symptoms Skin: Reports: No Symptoms Neurological: Denies: Confusion Psychiatric: Denies: Depression, Anxiety Systems Review Comment:: No significant overnight or acute issues. Her Hgb is stable at 9.3. - Patient Data Vitals - Most Recent: Last Vital Signs Temp 37.1 C 06/09/19 09:01 Pulse 77 06/09/19 09:21 Resp 15 06/09/19 09:01 BP 124/77 06/09/19 09:21 Pulse Ox 96 06/09/19 09:01 Weight - Most Recent: 79.152 kg Med Orders - Current: Current Medications Discontinued Medications Acetaminophen (Tylenol) 650 mg PO ONETIME ONE Stop: 06/02/19 11:01 Last Admin: 06/02/19 10:58 Dose: 650 mg Acetaminophen (Tylenol) 650 mg PO Q4H PRN PRN Reason: Pain (Mild 1-3)/fever Last Admin: 06/07/19 14:47 Dose: 650 mg Hydrocodone Bitart/Acetaminophen ([place] 325-5 Mg) 1 tab PO Q4H PRN PRN Reason: Pain Amlodipine Besylate (Norvasc) 10 mg PO DAILY [facility] Last Admin: 06/09/19 09:20 Dose: 10 mg Aspirin (Aspirin) 81 mg PO DAILY [facility] Last Admin: 06/09/19 09:20 Dose: 81 mg Benazepril HCl (Lotensin) 20 mg PO DAILY [facility] Last Admin: 06/09/19 09:20 Dose: 20 mg Bisacodyl (Dulcolax) 10 mg RECTAL ONETIME ONE Stop: 06/09/19 11:36 Last Admin: 06/09/19 11:33 Dose: 10 mg Chlordiazepoxide HCl (Librium) 50 mg PO ONETIME ONE Stop: 06/07/19 20:29 Last Admin: 06/07/19 21:04 Dose: 50 mg Dextrose/Water (Dextrose 50% In Water) 50 ml IVPUSH ASDIRECTED PRN PRN Reason: Blood Glucose Furosemide (Lasix) 40 mg IVPUSH NOW ONE Stop: 06/02/19 12:52 Last Admin: 06/02/19 13:02 Dose: 40 mg Furosemide (Lasix) 20 mg PO DAILY [facility] Last Admin: 06/09/19 09:21 Dose: 20 mg Guaifenesin/Phenylephrine HCl (Robitussin Dm) 10 ml PO Q4H PRN PRN Reason: Congestion Hydralazine HCl (Apresoline) 15 mg IVPUSH Q4H PRN PRN Reason: Hypertension Hydromorphone HCl (Dilaudid) 0.5 mg IVPUSH Q4H PRN PRN Reason: Pain Last Admin: 06/05/19 21:31 Dose: 0.5 mg Sodium Chloride (Normal Saline) 1,000 mls @ 250 mls/hr IV ASDIRECTED [facility] Last Admin: 06/02/19 10:58 Dose: 250 mls/hr Ceftriaxone Sodium 1 gm/ (Sodium Chloride) 100 mls @ 200 mls/hr IV ONETIME ONE Stop: 06/02/19 11:48 Last Admin: 06/02/19 11:52 Dose: 200 mls/hr Magnesium Sulfate 2 gm/ Premix 50 mls @ 25 mls/hr IV ONETIME ONE Stop: 06/02/19 14:03 Last Admin: 06/02/19 12:44 Dose: 25 mls/hr Sodium Chloride (Normal Saline) 1,000 mls @ 100 mls/hr IV ASDIRECTED [facility] Last Admin: 06/03/19 01:38 Dose: 100 mls/hr Ceftriaxone Sodium 1 gm/ (Sodium Chloride) 100 mls @ 200 mls/hr IV Q24H [facility] Last Admin: 06/03/19 11:22 Dose: 200 mls/hr Sodium Chloride (Sodium Chloride 3%) 500 mls @ 50 mls/hr IV ASDIRECTED [facility] Stop: 06/02/19 17:31 Last Admin: 06/02/19 16:34 Dose: 50 mls/hr Sodium Chloride (Normal Saline) 1,000 mls @ 50 mls/hr IV ASDIRECTED [facility] Last Admin: 06/03/19 04:29 Dose: 50 mls/hr Ferric Sodium Gluconate Complex 250 mg/ Sodium Chloride 120 mls @ 60 mls/hr IV ONETIME ONE Stop: 06/04/19 18:29 Last Admin: 06/04/19 16:27 Dose: 60 mls/hr Insulin [facility]) [facility] Admin: 06/05/19 18:30 Dose: Not Given Insulin Glargine (Lantus) 8 unit SUBCUT BID [facility] Last Admin: 06/07/19 07:39 Dose: Not Given Insulin Glargine (Lantus) 10 unit SUBCUT BID [facility] Last Admin: 06/07/19 09:24 Dose: 10 unit Insulin Glargine (Lantus) 10 unit SUBCUT ONETIME ONE Stop: 06/06/19 21:31 Last Admin: 06/06/19 21:39 Dose: 10 units Insulin Glargine (Lantus) 12 unit SUBCUT BID [facility] Last Admin: 06/09/19 09:21 Dose: 12 units Insulin Human Lispro (Humalog) 0 unit SUBCUT QIDACANDBED [facility]; Protocol Last Admin: 06/09/19 11:56 Dose: 3 units Insulin Human Lispro (Humalog) 15 unit SUBCUT ONETIME ONE Stop: 06/09/19 14:00 Last Admin: 06/09/19 14:10 Dose: 15 units Lactulose (Cephulac) 20 gm PO ONETIME ONE Stop: 06/06/19 11:23 Last Admin: 06/06/19 11:59 Dose: 20 gm Levofloxacin (Levaquin) 750 mg PO Q48H [facility] Last Admin: 06/09/19 11:33 Dose: 750 mg Levofloxacin (Levaquin) 500 mg PO Q24H [facility] Last Admin: 06/05/19 13:14 Dose: Not Given Levofloxacin (Levaquin) 250 mg PO Q24H [facility] Levothyroxine Sodium (Levothyroxine) 112 mcg PO ACBREAKFAST [facility] Last Admin: 06/09/19 06:31 Dose: 112 mcg Lorazepam (Ativan) 0 mg IVPUSH Q4H PRN; Protocol PRN Reason: Withdrawal Symptoms Lorazepam (Ativan) 2 mg IVPUSH Q4H PRN PRN Reason: Seizures Metoprolol Tartrate (Lopressor) 25 mg PO BID [facility] Last Admin: 06/09/19 09:21 Dose: 25 mg Ondansetron HCl (Zofran) 4 mg IVPUSH ONETIME ONE Stop: 06/02/19 10:39 Last Admin: 06/02/19 10:58 Dose: 4 mg Ondansetron HCl (Zofran) 4 mg IV Q4H PRN PRN Reason: Nausea/Vomiting Last Admin: 06/02/19 20:24 Dose: 4 mg Oxybutynin Chloride (Oxybutynin) 5 mg PO BID [facility] Last Admin: 06/06/19 09:37 Dose: 5 mg Oxybutynin Chloride (Oxybutynin Er) 5 mg PO ONETIME ONE Stop: 06/05/19 21:31 Last Admin: 06/05/19 22:00 Dose: 5 mg Oxybutynin Chloride (Oxybutynin) 10 mg PO BID [facility] Last Admin: 06/09/19 09:20 Dose: 10 mg Oxybutynin Chloride (Oxybutynin) 5 mg PO ONETIME ONE Stop: 06/06/19 10:09 Last Admin: 06/06/19 11:00 Dose: 5 mg Polyethylene Glycol (Miralax) 17 gm PO TID PRN PRN Reason: Constipation Last Admin: 06/08/19 20:58 Dose: 17 gm Psyllium Husk (Metamucil Sugar Free) 1 packet PO TIDAC [facility] Last Admin: 06/04/19 10:34 Dose: 1 packet Rosuvastatin Calcium (Crestor) 10 mg PO DAILY [facility] Last Admin: 06/09/19 09:21 Dose: 10 mg - Exam General: Alert, Cooperative HEENT: Pupils Equal, Pupils Reactive, EOMI, Mucous Membr. Moist/[place] Neck: Supple Lungs: Clear to Auscultation, Normal Respiratory Effort Cardiovascular: Regular Rate, Regular Rhythm GI/Abdominal Exam: Normal Bowel Sounds, Soft, Non-Tender, No Organomegaly, No Distention (Female) Exam: Deferred Back Exam: Normal Inspection, Decreased Range of Motion Extremities: Normal Inspection, Normal Range of Motion, Non-Tender, No Pedal Edema Peripheral Pulses: 2+: Posterior Tibial (R), Dorsalis Pedis (L) Skin: Dry Wound/Incisions: Healing Well Neurological: No New Focal Deficit Psy/Mental Status: Alert, Normal Affect, Normal Mood Sepsis Event Note - Evaluation Sepsis Screening Result: No Definite Risk - Problem List Review Problem List Initiated/Reviewed/Updated: Yes - Plan Plan:: Acute urinary retention Gross hematuria likely 2/2 Hemorrhagic cystitis Hemorrhagic cystitis Bladder cancer s/p ablation + B-HCG 06/02 S/p Abdominal Pain/Bladder Spasm +/- Constipation S/p Constipation Ablation followed by beta HCG on 05/23 and discharged home --> unable to void with distended bladder--> brought to ED by family members Malone catheter placed in ED with bloody urine Consulted with urology in ED who recommended prophylactic ciprofloxacin As per AUA the recommended amount of doses is 1+ negative urine culture--> Discontinued Rocephin She is at risk for UTI due to cystitis Last BM a couple of days ago PLAN - Malone catheter care - Continue Oxybutynin 10 mg po BID for bladder spasm - Urology follow up after discharge - Continue Levaquin 750 mg q48H for Cystitis prophylaxis Multifactorial hyponatremia with decreased serum osmolality Chronic renal insufficiency, stage IV (severe) Recent cystoscopy for ablation of bladder tumors + CKD stage IV + on thiazide diuretic + was on 180oz water at home + uncontrolled hypothyroid as per family Given 3% NS in ED Also on HCTZ known to cause hyponatremia Urine sodium 19-->now 109 (normal); she is now able to concentrate Sodium today 132 PLAN - Continue Fluid restriction 1.2L - Continue holding thiazide diuretic, confirm indication - Monitor Mental status - Continue levothyroxine - Keep balance as neutral as possible Type 1 diabetes mellitus, HbA1c- 7.3% (this admission), Improving Insulin pump and CGM Patient's family dosing insulin as per home regimen No longer on insulin pump Had an episode where she dropped in the 60s but asymptomatic PLAN - Continue control by family and patient with carb counting - Diabetic Education to check insulin pump; not matching with our unit read per nurse - Continue Lantus to 12 units SubQ BID with Accu-check - ISS change to low dose level now - Nurse to let me know how much she eats in the evening prior to insulin administration - PRN D50% for hypoglycemia Hypertension, fairly controlled Chronic kidney disease, stage IV, GFR 27 Iron deficiency anemia Has underlying Anemia of chronic disease At baseline as per chart review No signs of MAYE Likely worsening electrolyte disturbance No signs of active bleeding Iron deficit 1.5g; Likely has a component of Anemia of Chronic Disease with her underlying CKD Normal B12, folic acid and reticulocyte count Blood Pressure-not well controlled Hgb is now 9.3 PLAN - Monitor urine output - Renally dosed medications - Continue to hold thiazide diuretic due to Hyponatremia - Amlodipin 10 mg po Daily, Metoprolol Tartrate 25 mg po BID, Lasix 20 mg po daily, and ACEI 20 mg po daily - PRN Hydralazine 15 mg IVP Q4H for BP > 150/90 mmHg - Avoid nephrotoxic agents - Received Iron sucrose 500 mg Mild Cognitive Impairment - As per DIESEL ENGINE OPERATOR eval - IZABEL for placement as per DIESEL ENGINE OPERATOR's recommendations PROPHYLAXIS DVT- SCD's, no pharmacologic due to hematuria GI- not indicated CODE STATUS: full code DISPOSITION: She seems to be improving but slowly. LOS anticipate > 96hrs pending placement.
== END 2019-06-09 15:18 | DRG 920 ==
LOC: JD.ED 10:06 → JD.ICU 12:49 → JD.MS 06-05 14:33
PROVIDERS: ADMIT Family Medicine; ATTEND Family Medicine
DX: N99.820 Postprocedural hemorrhage of a genitourinary system organ or structure following a genitourinary system procedure (principal); R33.9 Retention of urine, unspecified; T81.40XA Infection following a procedure, unspecified, initial encounter; Z98.890 Other specified postprocedural states; E83.42 Hypomagnesemia; E87.1 Hypo-osmolality and hyponatremia; N18.4 Chronic kidney disease, stage 4 (severe); I13.0 Hypertensive heart and chronic kidney disease with heart failure and stage 1 through stage 4 chronic kidney disease, or unspecified chronic kidney disease; E11.22 Type 2 diabetes mellitus with diabetic chronic kidney disease; E11.21 Type 2 diabetes mellitus with diabetic nephropathy; H54.7 Unspecified visual loss; Z87.440 Personal history of urinary (tract) infections; R33.8 Other retention of urine; Z96.41 Presence of insulin pump (external) (internal); Z88.2 Allergy status to sulfonamides; R31.0 Gross hematuria; Z79.890 Hormone replacement therapy; N32.0 Bladder-neck obstruction; C67.9 Malignant neoplasm of bladder, unspecified; E10.22 Type 1 diabetes mellitus with diabetic chronic kidney disease; D50.9 Iron deficiency anemia, unspecified; I48.0 Paroxysmal atrial fibrillation; I50.9 Heart failure, unspecified; N30.91 Cystitis, unspecified with hematuria; K59.00 Constipation, unspecified; N32.89 Other specified disorders of bladder; G31.84 Mild cognitive impairment of uncertain or unknown etiology; D63.1 Anemia in chronic kidney disease; E10.21 Type 1 diabetes mellitus with diabetic nephropathy; Z79.82 Long term (current) use of aspirin; Z79.899 Other long term (current) drug therapy; Z90.49 Acquired absence of other specified parts of digestive tract; Z79.4 Long term (current) use of insulin
CPT/HCPCS: 36415; 71045; 80053; 82009; 83605; 83735; 83880; 83930; 83935; 84484; 85007; 85027; 85610; 85652; 85730; 86140; 87040 ×2; 87086; 93005; 96361; 96365; 96375; 99285; A9270; J0696; J2405; J3475; J7030; J7050; 74018; 74018-26; 80048; 82607; 82746; 82962; 83036; 83540; 84100; 84300; 84466; 85025; 85045; 87081; 87430; 93010; 93306; 94760; 96125-GN; 97161-GP; 97165-GO; 99223; 99231; 99232; 99239; J1170; J1815-GY; J1940; J2916; J7040